=== PATIENT | female | born 1985 | race African-American/Black ===

== ENCOUNTER 2017-10-14 10:03 | Emergency (ER) ==
[2017-10-14 10:09] VITALS: BP 190/101; TEMP 97.7; BMI 55.5
--- NOTE | 2017-10-14 10:24 | ED.PDOC ---
General ED Provider: Dr. RONNIE PEDROZA Chief Complaint: Abscess Stated Complaint: lower leg wounds Time Seen by Physician: 10:00 (seen with Saul white a doctor in [place] for diabetes which he has not seen x 4 months) Mode of Arrival: Walk-In Information Source: Patient Exam Limitations: No limitations Nursing and Triage Documentation Reviewed and Agree: Yes (see photos) Does patient meet sepsis criteria?: No System Inflammatory Response Syndrome: Not Applicable (does not monitor her blood sugar) Sepsis Protocol: For patient's 13 years and over: Temp is 96.8 and below OR 101 and greater Pulse >90 BPM Resp >20/minute Acutely Altered Mental Status Are patient's symptoms suggestive of a new infection, such as: -Pneumonia -Skin, Soft Tissue -Endocarditis -UTI -Bone, Joint Infection -Implantable Device -Acute Abdominal Infection -Wound Infection -Meningitis -Blood Stream Catheter Infection -Unknown Skin Complaint Exam - Skin/Soft Tissue Complaint/Exam Onset/Duration: ulcers noted as noted in the photos lower ext x 5 days Symptoms Are: Still present Timing: Constant Initial Severity: Mild Current Severity: Mild Character: Reports: Redness. Denies: Swelling, Raised, Painful Aggravating: Reports: Touch Alleviating: Reports: None Associated Signs and Symptoms: Reports: Tenderness. Denies: Fever, Chills, Itching, Drainage, Bruising, Red streaks, Joint swelling Related History: Reports: Similar episode Related Surgical History: Reports: None Recent Exposure to Others w/Similar Symptoms: No Skin Findings: Present: Other (ulcers ) Differential Diagnoses: Abscess, Cellulitis Review of Systems - Review Of Systems Constitutional: Reports: No symptoms Eyes: Reports: No symptoms Ears, Nose, Mouth, Throat: Reports: No symptoms Respiratory: Reports: No symptoms Cardiac: Reports: No symptoms GI: Reports: No symptoms : Reports: No symptoms Musculoskeletal: Reports: No symptoms Skin: Reports: Other (see photos ) Neurological: Reports: No symptoms Endocrine: Reports: No symptoms Hematologic/Lymphatic: Reports: No symptoms All Other Systems: Reviewed and Negative Past Medical History - Past Medical History Previously Healthy: Yes Endocrine: Reports: DM 2 Cardiovascular: Reports: Hypertension Respiratory: Reports: None Hematological: Reports: None Gastrointestinal: Reports: None Genitourinary: Reports: None Neuro/Psych: Reports: None Musculoskeletal: Reports: None Cancer: Reports: None Last Menstrual Period: NOW - Surgical History General Surgical History: Reports: None - Family History Family History: Reports: None - Social History Smoking Status: Never smoker Hx Substance Use: No Alcohol Screening: None Physical Exam - Physical Exam Appearance: Well-appearing, No pain distress, Well-nourished Eyes: OG, EOMI, Conjunctiva clear ENT: Ears normal, Nose normal, Oropharynx normal Respiratory: Airway patent, Breath sounds clear, Breath sounds equal, Respirations nonlabored Cardiovascular: RRR, Pulses normal, No rub, No murmur GI/: Soft, Nontender, No masses, Bowel sounds normal, No Organomegaly Musculoskeletal: Normal strength, ROM intact, No edema, No calf tenderness Skin: Warm, Dry (LEG ULCERS PLEASEE PHOTOS) Neurological: Sensation intact, Motor intact, Reflexes intact, Cranial nerves intact, Alert, Oriented Psychiatric: Affect appropriate, Mood appropriate Critical Care Note - Critical Care Note Total Time (mins): 0 Course - Course Vital Signs: Temp Pulse Resp BP Pulse Ox 10/14/17 10:04 97.7 F 97 H 20 190/101 H 95 Departure - Departure Time of Disposition: 10:25 Disposition: HOME SELF-CARE Discharge Problem: Diabetic leg ulcer Instructions: Type 2 Diabetes in Adults (DC), Basic Carbohydrate Counting (DC) , Diabetic Foot Ulcers (ED), Chronic Wounds (ED) Condition: Good Pt referred to PMD for follow-up: Yes IPMP verified?: No Additional Instructions: Please call your Family Physician as soon as possible to schedule a follow-up appointment.PLEASE SEE YOUR DOCTOR SOON POSSIBLE. YOU MUST MONITOR YOUR BLOOD SUGAR, UNCONTROLLED DIABETES CAN LEAD TO WOUNDS OR EVEN FOOT, LEG WOUNDS AND LIMB LOSS. Allergies/Adverse Reactions: Allergies Penicillins Adverse Reaction (Verified 10/14/17 10:09) Home Medications: Ambulatory Orders Amitriptyline HCl [Elavil] 10 mg PO DAILY 10/14/17 Gabapentin [Neurontin] 300 mg PO BID 10/14/17 Insulin Lispro [Humalog] See Protocol SUBCUT BID 10/14/17 Losartan Potassium [Cozaar] 25 mg PO DAILY 10/14/17
== END 2017-10-14 10:37 | disposition home or self-care (01) ==
LOC: ED 10:03
DX: E11.622 Type 2 diabetes mellitus with other skin ulcer (principal); L97.909 Non-pressure chronic ulcer of unspecified part of unspecified lower leg with unspecified severity; I10 Essential (primary) hypertension
CPT/HCPCS: 99282

== ENCOUNTER 2017-10-28 13:15 | Outpatient (CLI) | payer OTHER | END 2017-10-28 13:16 | disposition home or self-care (01) | LOC: FCC-LAB 13:15 | PROVIDERS: ATTEND Family Medicine | DX: E11.9 Type 2 diabetes mellitus without complications (principal); I10 Essential (primary) hypertension; L68.0 Hirsutism; E25.9 Adrenogenital disorder, unspecified; E78.5 Hyperlipidemia, unspecified; Z68.43 Body mass index [BMI] 50.0-59.9, adult | CPT/HCPCS: 36415; 80053; 80061; 83037; 84443; 85025 ==

== ENCOUNTER 2017-11-04 11:25 | Outpatient (CLI) | END 2017-11-04 11:26 | disposition home or self-care (01) | LOC: LAB 11:25 → FCC-LAB 11:26 | PROVIDERS: ATTEND Family Medicine | DX: E11.9 Type 2 diabetes mellitus without complications (principal); E78.5 Hyperlipidemia, unspecified; I10 Essential (primary) hypertension; L68.0 Hirsutism; E25.9 Adrenogenital disorder, unspecified; Z68.43 Body mass index [BMI] 50.0-59.9, adult | CPT/HCPCS: 36415; 82626; 83037; 83519; 83525; 84305; 84403; 84681; 86341 ==

== ENCOUNTER 2017-11-09 00:49 | Emergency (ER) ==
[2017-11-09 00:58] VITALS: BP 157/93; TEMP 97; BMI 55.2
[2017-11-09] MEDS ORDERED: ZOFRAN 4 MG/2 ML IM STA (01:09)
[2017-11-09] MEDS ORDERED: BENTYL IM STA (01:09)
--- NOTE | 2017-11-09 01:13 | ED.PDOC ---
General ED Provider: Dr. BRIAN KEYES Chief Complaint: Abdominal Pain Stated Complaint: Patient is a 32 year old female who comes to the ER with nausea, vomiting 30 minutes after eating a moldy hot dog. Time Seen by Physician: 01:00 Mode of Arrival: Walk-In Information Source: Patient Exam Limitations: No limitations Primary Care Provider: DEVANTE CALDERA Nursing and Triage Documentation Reviewed and Agree: Yes Does patient meet sepsis criteria?: No System Inflammatory Response Syndrome: Not Applicable Sepsis Protocol: For patient's 13 years and over: Temp is 96.8 and below OR 101 and greater Pulse >90 BPM Resp >20/minute Acutely Altered Mental Status Are patient's symptoms suggestive of a new infection, such as: -Pneumonia -Skin, Soft Tissue -Endocarditis -UTI -Bone, Joint Infection -Implantable Device -Acute Abdominal Infection -Wound Infection -Meningitis -Blood Stream Catheter Infection -Unknown Review of Systems - Review Of Systems Constitutional: Reports: No symptoms Eyes: Reports: No symptoms Ears, Nose, Mouth, Throat: Reports: No symptoms Respiratory: Reports: No symptoms Cardiac: Reports: No symptoms GI: Reports: Abdomen distended, Nausea, Vomiting : Reports: No symptoms Musculoskeletal: Reports: No symptoms Skin: Reports: No symptoms Neurological: Reports: No symptoms Endocrine: Reports: No symptoms Hematologic/Lymphatic: Reports: No symptoms All Other Systems: Reviewed and Negative Past Medical History - Past Medical History Previously Healthy: Yes Endocrine: Reports: DM 2 Cardiovascular: Reports: Hypertension Respiratory: Reports: None Hematological: Reports: None Gastrointestinal: Reports: None Genitourinary: Reports: None Neuro/Psych: Reports: None Musculoskeletal: Reports: None Cancer: Reports: None Last Menstrual Period: current Other Pertinent Past Medical History: Obesity - Surgical History General Surgical History: Reports: None - Family History Family History: Reports: None - Social History Smoking Status: Never smoker Hx Substance Use: No Alcohol Screening: Occasionally - Immunizations Tetanus Shot up to Date: Yes Physical Exam - Physical Exam Appearance: Ill-appearing, Obese Ill-appearing: Mild Eyes: OG, EOMI, Conjunctiva clear ENT: Oropharynx normal Neck: Supple Respiratory: Airway patent, Breath sounds clear, Breath sounds equal, Respirations nonlabored Cardiovascular: RRR, Pulses normal, No rub, No murmur GI/: Soft, Nontender, No masses, Bowel sounds normal, No Organomegaly Musculoskeletal: Normal strength, ROM intact, No edema, No calf tenderness Skin: Warm, Dry, Normal color Neurological: Sensation intact, Motor intact, Reflexes intact, Cranial nerves intact, Alert, Oriented Psychiatric: Affect appropriate, Mood appropriate Critical Care Note - Critical Care Note Total Time (mins): 0 Course - Course Orders, Labs, Meds: Orders Category Date Time Status Dicyclomine Inj [Bentyl] MEDS 11/09/17 01:09 Discontinued 20 mg IM ONCE STA Ondansetron HCl/Pf [Zofran 4 mg/2 ml] MEDS 11/09/17 01:09 Discontinued 4 mg IM ONCE STA Medications Discontinued Medications Generic Name Dose Route Start Last Admin Trade Name Freq PRN Reason Stop Dose Admin Dicyclomine HCl 20 mg 11/09/17 01:09 11/09/17 01:32 Bentyl IM 11/09/17 01:10 20 mg ONCE STA Administration Ondansetron HCl 4 mg 11/09/17 01:09 11/09/17 01:32 Zofran 4 Mg/2 Ml IM 11/09/17 01:10 4 mg ONCE STA Administration Vital Signs: Temp Pulse Resp BP Pulse Ox 11/09/17 00:49 97 F L 99 H 20 157/93 H 98 Departure - Departure Time of Disposition: 01:17 Disposition: HOME SELF-CARE Discharge Problem: Food poisoning Qualifiers: Encounter type: sequela Injury intent: accidental or unintentional Qualified Code(s): T62.91XS - Toxic effect of unspecified noxious substance eaten as food , accidental (unintentional), sequela Instructions: Food Poisoning (ED) Condition: Stable Pt referred to PMD for follow-up: Yes IPMP verified?: No Additional Instructions: Take medications as prescribed Follow up wit PCP in 3 days Prescriptions: Dicyclomine HCl [Bentyl] 10 mg PO TID PRN #20 capsule PRN Reason: Abdominal Pain Ondansetron HCl [Zofran Tab] 4 mg PO Q8H PRN #14 tablet PRN Reason: Nausea / Vomiting Allergies/Adverse Reactions: Allergies Penicillins Adverse Reaction (Verified 11/09/17 00:55) Home Medications: Ambulatory Orders Amitriptyline HCl [Elavil] 10 mg PO DAILY 10/14/17 Insulin Lispro [Humalog] See Protocol SUBCUT BID 10/14/17 Losartan Potassium [Cozaar] 25 mg PO DAILY 10/14/17 Dicyclomine HCl [Bentyl] 10 mg PO TID PRN #20 capsule 11/09/17 Ondansetron HCl [Zofran Tab] 4 mg PO Q8H PRN #14 tablet 11/09/17 Disposition Discussed With: Patient
== END 2017-11-09 01:55 | disposition home or self-care (01) ==
LOC: ED 00:49
DX: T62.91XA Toxic effect of unspecified noxious substance eaten as food, accidental (unintentional), initial encounter (principal); R11.2 Nausea with vomiting, unspecified; I10 Essential (primary) hypertension; E11.9 Type 2 diabetes mellitus without complications; Z79.4 Long term (current) use of insulin; Z79.899 Other long term (current) drug therapy
CPT/HCPCS: 96372; 99282

== ENCOUNTER 2017-12-14 09:52 | Outpatient (CLI) | payer OTHER ==
--- NOTE | 2017-12-14 12:13 | US ---
Exam: Transvaginal ultrasonographic evaluation of the pelvis. Ramos-scale and color duplex Doppler im aging with spectral waveform analysis was performed. Comparison: Biophysical profile performed 09/16/2009. Reason for exam: Hirsutism FINDINGS: The uterus measures approximately 9.9 x 4.9 x 4.6 cm. Multiple heterogeneous appearing and hyperechoic appearing structures are seen within the uterine jeff metrium measuring up to 3.4 x 2.5 x 2.4 cm. Small amount of fluid is seen within the cervix. The endometrium measures 1.31 cm which is within normal limits. Reported last menstrual period 12/05/2017. The right ovary was not seen on the examination. The left ovary measures approximately 2.9 x 2.2 x 2.0 cm with normal appearing vascularity. There is a 1.3 x 1.0 x 1.2 cm cyst in the left ovary. Impression: 1. Nodular appearing structures within the uterine myometrium likely represent fibroids. If clinica l concern exists, further evaluation may be performed. 2. The right ovary was not seen on the exam. 3. The left ovary appears grossly unremarkable with a 1.3 cm ovarian cyst
== END 2017-12-14 09:53 | disposition home or self-care (01) ==
LOC: RAD 09:52
PROVIDERS: ATTEND Family Medicine
DX: L68.0 Hirsutism (principal); E28.2 Polycystic ovarian syndrome

== ENCOUNTER 2018-01-09 08:48 | Outpatient (CLI) | payer OTHER | END 2018-01-09 08:49 | disposition home or self-care (01) | LOC: FCC-LAB 08:48 | PROVIDERS: ATTEND Family Medicine | DX: E24.9 Cushing's syndrome, unspecified (principal) | CPT/HCPCS: 36415; 82533 ==

== ENCOUNTER 2018-08-08 10:53 | Emergency (ER) ==
[2018-08-08 11:00] VITALS: TEMP 97.6; BMI 56.2
--- NOTE | 2018-08-08 11:22 | ED.PDOC ---
General ED Provider: Dr. RODGER HERNÁNDEZ Chief Complaint: Foot Pain/Injury Stated Complaint: Pain in Rt Heel. No know trauma Time Seen by Physician: 11:10 Mode of Arrival: Walk-In Information Source: Patient Exam Limitations: No limitations Primary Care Provider: DEVANTE CALDERA Nursing and Triage Documentation Reviewed and Agree: Yes Does patient meet sepsis criteria?: No System Inflammatory Response Syndrome: Not Applicable Sepsis Protocol: For patient's 13 years and over: Temp is 96.8 and below OR 101 and greater Pulse >90 BPM Resp >20/minute Acutely Altered Mental Status Are patient's symptoms suggestive of a new infection, such as: -Pneumonia -Skin, Soft Tissue -Endocarditis -UTI -Bone, Joint Infection -Implantable Device -Acute Abdominal Infection -Wound Infection -Meningitis -Blood Stream Catheter Infection -Unknown Musculoskeletal Complaint Exam - Ankle/Foot Complaint/Exam Location of Injury: Reports: Right, Foot (calcaneus) Mechanism of Injury: Reports: No known trauma Onset/Duration: 3 days Symptoms Are: Reports: Still present Onset of Pain: Reports: Prior to arrival Initial Severity: Mild Current Severity: Moderate Location: Reports: Discrete Character: Reports: Sharp, Aching Alleviating: Reports: Rest Aggravating: Reports: Movement, Weight bearing, Prolonged standing Able to Bear Weight: Yes (but painful) Related History: Reports: Similar episode (Occurred in past but then resolved with rest-now has occurred with increased pain ) Gout Risk Factors: Reports: None Related Surgical History: Reports: None Lower Extremity Findings: Present: Tenderness Achilles Tendon Abnormality: No Limited Range of Motion: Present: Plantarflexion Differential Diagnosis: Contusion, Strain, Bursitis, Other (heel spur) Review of Systems - Review Of Systems Constitutional: Reports: No symptoms Eyes: Reports: No symptoms Ears, Nose, Mouth, Throat: Reports: No symptoms Respiratory: Reports: No symptoms Cardiac: Reports: No symptoms GI: Reports: No symptoms : Reports: No symptoms Musculoskeletal: Reports: Other (RT HEEL PAIN ) Skin: Reports: No symptoms Neurological: Reports: No symptoms Endocrine: Reports: No symptoms Hematologic/Lymphatic: Reports: No symptoms All Other Systems: Reviewed and Negative Past Medical History - Past Medical History Previously Healthy: Yes Endocrine: Reports: DM 2 Cardiovascular: Reports: Hypertension Respiratory: Reports: None Hematological: Reports: None Gastrointestinal: Reports: None Genitourinary: Reports: None Neuro/Psych: Reports: None Musculoskeletal: Reports: None Cancer: Reports: None Last Menstrual Period: last month Other Pertinent Past Medical History: Obesity - Surgical History General Surgical History: Reports: None - Family History Family History: Reports: None - Social History Smoking Status: Never smoker Hx Substance Use: No Alcohol Screening: None - Immunizations Tetanus Shot up to Date: No Physical Exam - Physical Exam Appearance: Obese Ill-appearing: Mild Pain Distress: Mild Eyes: OG, EOMI, Conjunctiva clear ENT: Ears normal, Nose normal, Oropharynx normal Neck: Supple Respiratory: Airway patent, Breath sounds clear, Breath sounds equal, Respirations nonlabored Cardiovascular: RRR, Pulses normal, No rub, No murmur GI/: Soft, Nontender, No masses, Bowel sounds normal, No Organomegaly Musculoskeletal: Normal strength (PAIN TO PALPATION OF RT HEEL), ROM intact, No edema, No calf tenderness Skin: Warm, Dry, Normal color Neurological: Sensation intact, Motor intact, Reflexes intact, Cranial nerves intact Psychiatric: Affect appropriate, Mood appropriate Interpretation - Radiology Interpretation Radiology Results: Positive (rt plantar calcaneal spur/ OA changes) Physician Notification - Case Discussed Physician Notified: DR CALDERA Time of Notification: 12:30 (MADE AWARE OF PTS DIABETES AND LACK OF INSULIN- WILL WORK IN ) Critical Care Note - Critical Care Note Total Time (mins): 0 Course - Course Hematology/Chemistry: 08/08/18 11:35 08/08/18 11:35 Orders, Labs, Meds: Lab Review 08/08/18 08/08/18 11:35 11:35 WBC 6.27 RBC 4.51 Hgb 11.1 L Hct 35.7 L MCV 79.2 L MCH 24.6 L MCHC 31.1 L RDW Coeff of Rod 14.6 Plt Count 376 Immature Gran % (Auto) 0.2 Neut % (Auto) 60.1 Lymph % (Auto) 32.9 [place] % (Auto) 5.4 Eos % (Auto) 0.8 Baso % (Auto) 0.6 Immature Gran # (Auto) 0.0 Neut # (Auto) 3.8 Lymph # (Auto) 2.1 [place] # (Auto) 0.3 L Eos # (Auto) 0.1 Baso # (Auto) 0.0 ESR 34 H Sodium 135.5 Potassium 3.73 Chloride 99.5 Carbon Dioxide 27.4 Anion Gap 12.33 BUN 9.0 Creatinine 0.51 L Estimated GFR (MDRD) 166.00 BUN/Creatinine Ratio 17.64 Glucose 302.7 H Calcium 8.91 Total Bilirubin 0.68 AST 19.8 ALT 14.3 Alkaline Phosphatase 77.9 Total Protein 7.84 Albumin 4.12 Globulin 3.72 Albumin/Globulin Ratio 1.10 Orders Category Date Time Status CBC W/ AUTO DIFF Stat LAB 08/08/18 11:35 Completed CMP [COMPREHENSIVE METABOLIC PANEL] Stat LAB 08/08/18 11:35 Completed ESR Stat LAB 08/08/18 11:35 Completed HEEL, RIGHT (CALCANEUS) Stat RADS 08/08/18 11:27 Completed Vital Signs: Temp Pulse Resp BP Pulse Ox 08/08/18 12:41 143/91 H 08/08/18 10:54 97.6 F 92 H 18 158/105 H 94 L Departure - Departure Time of Disposition: 12:15 Disposition: HOME SELF-CARE Discharge Problem: Calcaneal spur of foot, Diabetes type 2, uncontrolled Instructions: Heel Spur (ED), Type 2 Diabetes Management for Adults (ED) Condition: Fair Pt referred to PMD for follow-up: Yes IPMP verified?: No Additional Instructions: Minimize weight bearing ambulation rX IBUPROFEN FOR PAIN CONTROL Ice pack to site of pain for 20 minutes twice daily Follow up with PCP and Records Supervisor Keep Close track of blood glucose levels See Dr Caldera as soon as possible/WILL ATTEMPT TO WORK YOU IN FOR APT Prescriptions: Ibuprofen [Ibu] 600 mg PO QID PRN #30 tablet PRN Reason: Heel pain Allergies/Adverse Reactions: Allergies Penicillins Adverse Reaction (Verified 08/08/18 11:06) Home Medications: Ambulatory Orders Ibuprofen [Ibu] 600 mg PO QID PRN #30 tablet 08/08/18 Insulin Glargine,Hum.rec.anlog [Lantus Solostar] 0 SQ 08/09/18 Disposition Discussed With: Patient
[2018-08-08 12:41] VITALS: BP 143/91
--- NOTE | 2018-08-08 13:03 | DI ---
EXAM: Right calcaneus, two-view HISTORY: Pain COMPARISON: None FINDINGS: No fracture or dislocation. Small to moderate plantar calcaneal spur. Mild posterior mao caneal enthesopathy. Mild to moderate osteoarthritis midfoot with dorsal spurring. Atherosclerotic vascular calcification. No focal soft tissue abnormality. IMPERSSION: 1. No fracture or dislocation. 2. Small to moderate plantar calcaneal spur. Mild posterior calcaneal enthesopathy. 3. Osteoarthritis midfoot.
== END 2018-08-08 13:05 | disposition home or self-care (01) ==
LOC: ED 10:53
DX: E11.65 Type 2 diabetes mellitus with hyperglycemia (principal); M77.31 Calcaneal spur, right foot; I10 Essential (primary) hypertension; Z79.4 Long term (current) use of insulin
CPT/HCPCS: 36415; 80053; 85025; 85651; 99283

== ENCOUNTER 2018-08-18 11:25 | Outpatient (CLI) | payer OTHER | END 2018-08-18 11:26 | disposition home or self-care (01) | LOC: RHC-LAB 11:25 → FCC-LAB 11:26 | PROVIDERS: ATTEND Family Medicine | DX: E11.9 Type 2 diabetes mellitus without complications (principal); E22.0 Acromegaly and pituitary gigantism; E25.9 Adrenogenital disorder, unspecified; M72.2 Plantar fascial fibromatosis; E78.5 Hyperlipidemia, unspecified | CPT/HCPCS: 36415; 80061; 83037 ==

== ENCOUNTER 2022-09-05 20:35 | Inpatient (IN) ==
[2022-09-05] MEDS ORDERED: ZOFRAN 4 MG/2 ML IVP STA (20:38)
[2022-09-05 21:06] LABS: BASOPHILS % (AUTO) 0.1 % (0.0-3.0); HEMATOCRIT 35.5 % (37.0-47.0); HEMOGLOBIN 11.6 g/dl (12.0-16.0); IMMATURE GRANULOCYTE # (AUTO) 0.1 (0.0-1.0); IMMATURE GRANULOCYTE % (AUTO) 0.5 % (0.0-5.0); LYMPHOCYTES # (AUTO) 1.6 K/uL (0.60-3.4); LYMPHOCYTES % (AUTO) 11.9 (10.0-50.0); MEAN CORPUSCULAR HGB CONC 32.7 (31.8-35.4); MEAN CORPUSCULAR VOLUME 85.5 fl (81.0-99.0); MONOCYTES # (AUTO) 0.7 K/uL (0.4-2.0); MONOCYTES % (AUTO) 5.2 (0-10); NEUTROPHILS # (AUTO) 11.2 K/ul (2.0-6.9); NEUTROPHILS % (AUTO) 82.3 % (42.2-75.2); PLATELET COUNT 513 10^3/uL (140-440); RDW COEFFICIENT OF VARIATION 13.7 % (11.6-14.8); RED BLOOD COUNT 4.15 10^6/ul (4.20-5.40); WHITE BLOOD COUNT 13.58 K/ul (4.6-10.2)
[2022-09-05 21:17] LABS: ALANINE AMINOTRANSFERASE 55.4 U/L (0-35); ALBUMIN 3.94 g/dL (3.5-5.0); ALKALINE PHOSPHATASE 309.8 U/L (38-126); ASPARTATE AMINO TRANSFERASE 46.8 U/L (14-36); BILIRUBIN,TOTAL 0.88 mg/dL (0.2-1.3); BLOOD UREA NITROGEN 22.4 mg/dL (7-17); CALCIUM 9.47 mg/dL (8.4-10.2); CARBON DIOXIDE 25.3 mmol/L (22-30.0); CHLORIDE 92.8 mmol/L (98-107); CREATININE 1.24 mg/dL (0.60-1.30); GLUCOSE 368.6 mg/dL (74-106); LIPASE 31.6 U/L (23-300); POTASSIUM 3.87 mmol/L (3.5-5.1); SODIUM 134.2 mmol/L (134.5-145); TOTAL PROTEIN 9.19 g/dL (6.3-8.2)
--- NOTE | 2022-09-05 21:24 | ED.PDOC ---
General ED Provider: Dr. GOKUL RODRIGUEZ DO Chief Complaint: Nausea/Vomiting Stated Complaint: Patient is a 37 yo F here for generalized abdominal pain with nausea Patient arrives tachcyardic rate 105, afebrile with stable blood pressure She reports 3-4 days of nausea and abdominal pain PMH: insulin dependnet DM2, obesity, HTN, GERD SHe denies tobacco drug or alcohol use Initially she thought this may be her GERD but it feels worse She is compliant with medicaiotn regiment but not a diabetic diet SHe states this does not feel like when her usgars are uncotnrolled Patietn stable Daughter at bedside No falls no injuires, no trauma No cough, no chest pain No ahses, no dysuria. Time Seen by Provider: 09/05/22 20:40 Information Source: Patient Primary Care Provider: FRANCISCO STEPHENS APRN Nursing and Triage Documentation Reviewed and Agree: Yes Does patient meet sepsis criteria?: Yes If yes, has appropriate treatment been initiated?: Yes System Inflammatory Response Syndrome: Pulse >90 BPM Sepsis Protocol: For patient's 13 years and over: Temp is 96.8 and below OR 101 and greater Pulse >90 BPM Resp >20/minute Acutely Altered Mental Status Are patient's symptoms suggestive of a new infection, such as: -Pneumonia -Skin, Soft Tissue -Endocarditis -UTI -Bone, Joint Infection -Implantable Device -Acute Abdominal Infection -Wound Infection -Meningitis -Blood Stream Catheter Infection -Unknown Review of Systems Review Of Systems Constitutional: Denies Chills, Fever, Weakness or Sweats Eyes: Denies Blindness or Vision change Ears, Nose, Mouth, Throat: Denies Ear pain, Ear discharge, Nose pain, Nose discharge, Epistaxis or Mouth pain Respiratory: Denies Cough, Shortness of Breath or Stridor Cardiac: Denies Chest pain, Irregular heart rate or Lightheadedness GI: Reports Abdominal pain, Diarrhea and Poor appetite; Denies Abdomen distended or Constipated : Denies Burning, Dysuria, Discharge, Frequency or Flank pain Musculoskeletal: Denies Back pain, Joint pain or Joint swelling Skin: Denies Bruising, Change in hair/nails or Rash Neurological: Denies Anxiety or Depressed Endocrine: Denies Excessive sweating or Flushing Hematologic/Lymphatic: Reports No symptoms All Other Systems: Reviewed and Negative [facility] Medical History Asthma J45.909 - Unspecified asthma, uncomplicated (ICD-10) 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 - Type 2 diabetes mellitus with diabetic autonomic (poly)neuropathy (ICD-10) K31.84 - Gastroparesis (ICD-10) Elevated cholesterol E78.00 - Pure hypercholesterolemia, unspecified (ICD-10) Iron deficiency anemia D50.9 - Iron deficiency anemia, unspecified (ICD-10) Mixed hyperlipidemia E78.2 - Mixed hyperlipidemia (ICD-10) Vitamin D deficiency E55.9 - Vitamin D deficiency, unspecified (ICD-10) Family History Mother Diabetes Alcoholism Psychiatric disorder Cancer Hypertension FATHER Alcoholism Cardiac disease Psychiatric disorder Hypertension BROTHER Psychiatric disorder pgm Cerebrovascular accident mgm Psychiatric disorder Social History Smoking and tobacco status: Never smoker Alcohol intake: current Alcohol intake frequency: a few times a month Substance use type: does not use Ludmila/christian: CONFUCIANISM Special ludmila needs: No Agree to transfusion: Yes Adopted: Yes Caregiver/support person: Yes (has a child) Household members: children Housing: apartment Marital status: W / Number of children: 1 Highest education level completed: high school graduate Financial difficulty paying for basics: not very hard service: No Current occupational status: disabled Current occupation: on disability since 17 y/o due to ID Pets and animals: No History of recent travel: No Sexually active: No Do you think of yourself as: straight/heterosexual Current gender identity: female Seatbelt use: always Drives intoxicated or rides with intoxicated frontload driver: No Water heater temperature set < 120 degrees: Yes Working smoke detector in home: Yes Fire extinguisher in home: No Carbon monoxide detector in home: No Firearms in home: No Surgical History Gall Bladder Removal Female Reproductive History Menstrual Hx Hysterectomy: No Hx Tubal Ligation: No Physical Exam Physical Exam Appearance: Reports Well-appearing, Well-nourished and Obese Ill-appearing: Not Applicable Pain Distress: Not Applicable Eyes: Reports OG and EOMI ENT: Reports Ears normal, Nose normal and Other (Uvula midline, poor dentition, no oropharyngeal lesions); Denies TMs Occluded, Epistaxis or Dry mucosa Neck: Supple Respiratory: Reports Airway patent and Breath sounds clear; Denies Wheezes Cardiovascular: Reports Tachycardia GI/: Reports Soft and Other (epigastric ttp, negative kim sign, no [place] ttp, no fluid wave. Central abdominal obeisty present.) Musculoskeletal: Reports Normal strength and ROM intact Skin: Reports Warm and Dry Neurological: Reports Sensation intact and Motor intact Psychiatric: Reports Affect appropriate and Mood appropriate Critical Care Note Critical Care Note Total Critical Care Time (mins): 35 Course Course 09/05/22 21:00 09/05/22 21:00 Orders, Labs, Meds: Lab Review 09/05/22 09/05/22 09/05/22 19:10 20:35 21:00 WBC 13.58 H RBC 4.15 L Hgb 11.6 L Hct 35.5 L MCV 85.5 MCH 28.0 MCHC 32.7 RDW Coeff of Rod 13.7 Plt Count 513 H Immature Gran % (Auto) 0.5 Neut % (Auto) 82.3 H Lymph % (Auto) 11.9 [place] % (Auto) 5.2 Eos % (Auto) 0.0 Baso % (Auto) 0.1 Neut # (Auto) 11.2 H Lymph # (Auto) 1.6 [place] # (Auto) 0.7 Eos # (Auto) 0.0 Baso # (Auto) 0.0 Immature Gran # (Auto) 0.1 Sodium 134.2 L Potassium 3.87 Chloride 92.8 L Carbon Dioxide 25.3 Anion Gap 19.97 BUN 22.4 H Creatinine 1.24 Estimated GFR (MDRD) 58.00 BUN/Creatinine Ratio 18.06 Glucose 368.6 H Lactic Acid 1.26 Calcium 9.47 Magnesium 1.62 Total Bilirubin 0.88 AST 46.8 H ALT 55.4 H Alkaline Phosphatase 309.8 H Total Protein 9.19 H Albumin 3.94 Globulin 5.25 Albumin/Globulin Ratio 0.75 Lipase 31.6 Urine Color Yellow Urine Clarity Clear Urine pH 5.0 Ur Specific [place] 1.020 Urine Protein 3+ H Urine Glucose (UA) 3+ H Urine Ketones 1+ H Urine Blood 3+ H Urine Nitrite Positive H Urine Bilirubin 2+ H Urine Urobilinogen 2.0 H Ur Leukocyte Esterase 1+ H Urine Microscopic RBC 20-30 Urine Microscopic WBC 5-10 Ur Squamous Epith Cells 2-5 Urine Bacteria 3+ Urine Test Negative Acetone, Qual Small Orders Category Date Time Status [facility] ADMISSION 09/05/22 22:40 Active ACTIVITY .Early Mobilization for VTE Prevention CARE 09/05/22 22:51 Active BLOOD GLUCOSE MONITORING (MED/SURG) Q1HR CARE 09/05/22 22:51 Active GIVE HS SNACK 2100 CARE 09/05/22 22:53 Active INTAKE & OUTPUT Q8HR CARE 09/05/22 22:47 Active NPO REMINDER: IMAGING ONCE CARE 09/05/22 20:57 Completed REMINDER: Give Insulin if Needed Q1HR CARE 09/05/22 22:51 Active TELEMETRY MONITORING TELE CARE 09/05/22 22:40 Active TELEMETRY MONITORING TELE CARE 09/05/22 22:52 Active VITAL SIGNS Q4HR CARE 09/05/22 22:47 Active NPO - EXCEPT MAY GIVE PO MEDS DIETARY 09/06/22 Breakfast Ordered ED IV/MEDIPORT/POWERPORT .ONCE EMERGENCY 09/05/22 20:38 Active ACETONE, QUALITATIVE Stat LAB 09/05/22 21:00 Completed BLOOD CULTURE Stat LAB 09/05/22 22:20 Received CBC W/ AUTO DIFF DAILY@0600 LAB 09/06/22 06:00 Ordered CBC W/ AUTO DIFF DAILY@0600 LAB 09/07/22 06:00 Ordered CBC W/ AUTO DIFF Stat LAB 09/05/22 21:00 Completed CMP [COMPREHENSIVE METABOLIC PANEL] Stat LAB 09/05/22 22:37 Ordered COMPREHENSIVE METABOLIC PANEL DAILY@0600 LAB 09/06/22 06:00 Ordered COMPREHENSIVE METABOLIC PANEL DAILY@0600 LAB 09/07/22 06:00 Ordered COMPREHENSIVE METABOLIC PANEL Stat LAB 09/05/22 21:00 Completed LACTIC ACID Stat LAB 09/05/22 21:00 Completed LIPASE Stat LAB 09/05/22 21:00 Completed MAGNESIUM Stat LAB 09/05/22 20:35 Completed TEST URINE [URINE ] Stat LAB 09/05/22 19:10 Completed URINALYSIS C & S IF INDICATED Stat LAB 09/05/22 19:10 Completed VENOUS BLOOD GAS Stat LAB 09/05/22 23:05 Ordered 0.9 % Sodium Chloride [Saline Flush] Meds 09/05/22 20:38 Active 1 syr IVF PRN PRN Acetaminophen [Tylenol] Meds 09/05/22 22:51 Ordered 650 mg PO Q4H PRN Ceftriaxone/D5w 1 gm Premix [Rocephin 1 gm/50 ml D5w] Meds 09/06/22 09:00 Ordered 1 gm in 50 ml IV DAILY Ceftriaxone/D5w 2 gm Premix [Rocephin 2 gm/50 ml D5w] Meds 09/05/22 22:00 Discontinued 2 gm IV ONCE ONE Insulin Regular, Human [Humulin R] Meds 09/05/22 21:33 Discontinued 10 unit IVP ONCE STA Insulin Regular, Human [Humulin R] Meds 09/05/22 22:51 Ordered See Protocol SUBCUT PRN PRN Ondansetron HCl/Pf [Zofran 4 mg/2 ml] Meds 09/05/22 20:38 Discontinued 4 mg IVP ONCE STA Ondansetron HCl/Pf [Zofran 4 mg/2 ml] Meds 09/05/22 23:00 Ordered 4 mg IVP Q6H PRN Potassium Chloride/D5-0.45NACL [D5%-1/2Ns-KCl 40 Meq/l Meds 09/05/22 22:00 Active IV Caitlyn] 1,000 ml IV 250 mls/hr Sodium Chloride 0.9% [Sodium Chloride] 1,000 ml Meds 09/05/22 21:28 Discontinued IV BOLUS Sodium Chloride 0.9% [Sodium Chloride] 1,000 ml Meds 09/05/22 21:35 Discontinued IV BOLUS Sodium Chloride 0.9% [Sodium Chloride] 1,000 ml Meds 09/05/22 22:[address] ABDOMEN/PELVIS W CONTRAST Stat RADS 09/05/22 20:57 Completed Medications Generic Name Dose Route Start Last Admin Trade Name Freq PRN Reason Stop Dose Admin Acetaminophen 650 mg 09/05/22 22:51 Acetaminophen 325 Mg Tablet PO Q4H PRN Mild Pain Potassium Chloride/Dextrose/Sod Cl 1,000 mls @ 250 mls/hr 09/05/22 22:00 09/05/22 22:02 D5%-1/2ns-Kcl 40 Meq/L Iv Caitlyn IV 250 mls/hr .Q4H EB Administration CEFTRIAXONE/D5W 1 GM PREMIX 1 gm in 50 mls @ 75 mls/hr 09/06/22 09:00 Rocephin 1 Gm/50 Ml D5w IV 09/09/22 08:59 DAILY EB Insulin Human Regular 0 unit 09/05/22 22:51 Insulin Regular, Human 100 Unit/Ml (3ml) Vial SUBCUT PRN PRN Hyperglycemia Protocol Ondansetron HCl 4 mg 09/05/22 23:00 Ondansetron Hcl/Pf 4 Mg/2 Ml Sdv IVP Q6H PRN Nausea / Vomiting Sodium Chloride 1 syr 09/05/22 20:38 09/05/22 21:11 0.9% Sodium Chloride 10 Ml Disp.Syrin IVF 1 syr PRN PRN Administration To flush IV Discontinued Medications Generic Name Dose Route Start Last Admin Trade Name Freq PRN Reason Stop Dose Admin Sodium Chloride 1,000 mls @ 1,000 mls/hr 09/05/22 21:28 09/05/22 21:37 Sodium Chloride IV 09/05/22 22:27 1,000 mls/hr BOLUS STA Administration Sodium Chloride 1,000 mls @ 1,000 mls/hr 09/05/22 21:35 09/05/22 22:01 Sodium Chloride IV 09/05/22 22:34 Not Given BOLUS STA Sodium Chloride 1,000 mls @ 1,000 mls/hr 09/05/22 22:01 09/05/22 22:38 Sodium Chloride IV 09/05/22 23:00 1,000 mls/hr BOLUS STA Administration Insulin Human Regular 10 unit 09/05/22 21:33 09/05/22 21:47 Insulin Regular, Human 100 Unit/Ml (3ml) Vial IVP 09/05/22 21:34 10 unit ONCE STA Administration Ondansetron HCl 4 mg 09/05/22 20:38 09/05/22 21:11 Ondansetron Hcl/Pf 4 Mg/2 Ml Sdv IVP 09/05/22 20:39 4 mg ONCE STA Administration Vital Signs: Temp Pulse Resp BP Pulse Ox 09/05/22 20:41 98.4 F 105 H 17 130/77 95 MDM: Patient is a 37 yo F here for nausea, vomiting and abdominal pain Patient afebrile, tachycardic with stable blood pressure Exam concerning for tachycardia 3+ labs and 1 image reviewed by me Consults to [facility]ist Team We discussed UTI, sirs + source and AGMA with hyperglycemia Patient reviewed fluids for HHS/sepsis, blood cultures and Rocephin 2 g for UTI/sepsis I spoke with [facility] pharmacist she agrees with Rocephin for her illness in setting of PCN allergy Hx from patient chart review by me WDX: UTI, sepsis, HHS, AGMA, nausea, vomiting abdominal pain, transaminitis, acute on chronic moderate complexity DDX: I considered shock, SBO, appendicitis but these were not found Insulin 10 units and electrolytes repleted Patient full code and amenable to plan and admission SDOH:Patient has multiple comorbidities and will improve with inpatient care All questions answered Discharge Plan Discharge Patient Disposition: ADMITTED INPATIENT Discharge Problem: Anemia, Leukocytosis, Thrombocytosis, Nausea & vomiting, Abdominal pain, Acute hyperglycemia, UTI (urinary tract infection), Increased anion gap metabolic acidosis, Sepsis Did you review [place] for ALL controlled substances?: Not Applicable ED Provider: GOKUL RODRIGUEZ Condition: Fair Physician Progress Note: []
[2022-09-05 21:26] LABS: BILIRUBIN,URINE 2+ (NEGATIVE); CLARITY,URINE Clear (CLEAR); COLOR,URINE Yellow (YELLOW); KETONES,URINE 1+ (NEGATIVE); LEUKOCYTE ESTERASE ,URINE 1+ (NEGATIVE); NITRITE,URINE Positive (NEGATIVE); PROTEIN,URINE 3+ (NEGATIVE); URINE, BLOOD 3+ (NEGATIVE)
[2022-09-05 21:27] LABS: URINE PREGNANCY TEST NEGATIVE (NEGATIVE)
[2022-09-05 21:28] LABS: GLUCOSE, URINE (UA) 3+ (NEGATIVE)
[2022-09-05] MEDS ORDERED: SODIUM CHLORIDE 1,000 ML IV STA ×3 (21:28→22:01)
[2022-09-05 21:29] LABS: BACTERIA,URINE 3+ (NOT PRESENT); URINE RBC, MICROSCOPIC 20-30 (0-2)
[2022-09-05] MEDS ORDERED: HUMULIN R IVP STA (21:33)
[2022-09-05] MEDS ORDERED: D5W IV ONE (22:00)
[2022-09-05] MEDS ORDERED: D5%-1/2NS-KCL 40 MEQ/L IV SOL 1,000 ML IV SCH (22:00)
[2022-09-05] MEDS ORDERED: ROCEPHIN IV ONE (22:00)
--- NOTE | 2022-09-05 22:23 | CT ---
EXAM: CT SCAN ABDOMEN PELVIS WITH CONTRAST HISTORY: Left upper quadrant pain COMPARISON: CT scan abdomen pelvis 07/27 21 FINDINGS: Postcontrast helical imaging was obtained through the abdomen pelvis utilizing 2.5-mm edvin imation. Sagittal and coronal reconstructions were imaged and reviewed. Visualized lung bases are c lear. There has been prior cholecystectomy. The liver is enlarged with diffuse fatty infiltration. The pancreas spleen and adrenal glands have normal enhanced CT appearance. The kidneys excrete cont rast in a normal fashion bilaterally.. The abdominal aorta is normal and course and caliber. The in testines demonstrate normal caliber without surrounding inflammatory changes. There is a fat-contain ing umbilical hernia. The bladder is decompressed limiting evaluation. Normal-appearing uterus. Walter ne windows reveals no lytic or blastic lesions. IMPRESSION: No acute intra-abdominal findings Hepatomegaly with fatty infiltration All CT scans are performed using dose optimization techniques as appropriate to the performed exam an d include at least one of the following: Automated exposure control, adjustment of the mA and/or kV according t o size, and the use of iterative reconstruction technique.
[2022-09-05] MEDS ORDERED: TYLENOL PO PRN (22:51)
[2022-09-06 00:03] VITALS: BMI 53.0
[2022-09-06 00:30] LABS: ALANINE AMINOTRANSFERASE 52.3 U/L (0-35); ALBUMIN 3.72 g/dL (3.5-5.0); ALKALINE PHOSPHATASE 292.9 U/L (38-126); ASPARTATE AMINO TRANSFERASE 45.5 U/L (14-36); BILIRUBIN,TOTAL 0.8 mg/dL (0.2-1.3); BLOOD UREA NITROGEN 24.6 mg/dL (7-17); CARBON DIOXIDE 28.6 mmol/L (22-30.0); CHLORIDE 93.7 mmol/L (98-107); CREATININE 1.15 mg/dL (0.60-1.30); GLUCOSE 360.7 mg/dL (74-106); POTASSIUM 3.97 mmol/L (3.5-5.1); SODIUM 134.4 mmol/L (134.5-145); TOTAL PROTEIN 8.84 g/dL (6.3-8.2)
[2022-09-06] MEDS ORDERED: MYXREDLIN 100 UNIT/100 ML BAG 100 UNIT/100 ML PLAST..BAG IV SCH (01:30)
[2022-09-06] MEDS: SODIUM CHLORIDE 0.9%-KCL 20 MEQ 1,000 ML IV SCH ×2 (01:49→07:38)
[2022-09-06 02:46] LABS: BLOOD UREA NITROGEN 23.7 mg/dL (7-17); CALCIUM 9.09 mg/dL (8.4-10.2); CARBON DIOXIDE 25.5 mmol/L (22-30.0); CHLORIDE 95.5 mmol/L (98-107); CREATININE 1.02 mg/dL (0.60-1.30); GLUCOSE 330.3 mg/dL (74-106); POTASSIUM 3.79 mmol/L (3.5-5.1); SODIUM 136.5 mmol/L (134.5-145)
[2022-09-06] MEDS: ZOFRAN 4 MG/2 ML IVP PRN ×2 (04:09→17:16)
[2022-09-06] MEDS ORDERED: D5%-1/2NS-KCL 40 MEQ/L IV SOL 1,000 ML IV SCH ×2 (04:30→07:15)
[2022-09-06 06:09] LABS: BASOPHILS % (AUTO) 0.2 % (0.0-3.0); HEMATOCRIT 33.9 % (37.0-47.0); HEMOGLOBIN 11.1 g/dl (12.0-16.0); IMMATURE GRANULOCYTE # (AUTO) 0.1 (0.0-1.0); IMMATURE GRANULOCYTE % (AUTO) 0.5 % (0.0-5.0); LYMPHOCYTES # (AUTO) 1.9 K/uL (0.60-3.4); LYMPHOCYTES % (AUTO) 15.9 (10.0-50.0); MEAN CORPUSCULAR HGB CONC 32.7 (31.8-35.4); MEAN CORPUSCULAR VOLUME 85.6 fl (81.0-99.0); MONOCYTES # (AUTO) 1.2 K/uL (0.4-2.0); MONOCYTES % (AUTO) 9.7 (0-10); NEUTROPHILS # (AUTO) 8.7 K/ul (2.0-6.9); NEUTROPHILS % (AUTO) 73.7 % (42.2-75.2); PLATELET COUNT 505 10^3/uL (140-440); RDW COEFFICIENT OF VARIATION 13.8 % (11.6-14.8); RED BLOOD COUNT 3.96 10^6/ul (4.20-5.40); WHITE BLOOD COUNT 11.85 K/ul (4.6-10.2)
[2022-09-06 06:21] LABS: ALANINE AMINOTRANSFERASE 52.9 U/L (0-35); ALBUMIN 3.69 g/dL (3.5-5.0); ALKALINE PHOSPHATASE 289.7 U/L (38-126); BILIRUBIN,TOTAL 0.78 mg/dL (0.2-1.3); BLOOD UREA NITROGEN 22.8 mg/dL (7-17); CALCIUM 9.06 mg/dL (8.4-10.2); CARBON DIOXIDE 26.1 mmol/L (22-30.0); CHLORIDE 98.1 mmol/L (98-107); CREATININE 0.92 mg/dL (0.60-1.30); GLUCOSE 328.2 mg/dL (74-106); POTASSIUM 3.85 mmol/L (3.5-5.1); SODIUM 136.1 mmol/L (134.5-145); TOTAL PROTEIN 8.66 g/dL (6.3-8.2)
[2022-09-06] MEDS ORDERED: SODIUM CHLORIDE 0.9%-KCL 20 MEQ 1,000 ML IV SCH (07:15)
[2022-09-06 08:40] LABS: VBG HCO3 16.4 (22-26); VBG OXYGEN SATURATION 99.2 (60-80); VBG PH 6.96 (7.30-7.40)
[2022-09-06 09:19] LABS: VBG HCO3 23.3 (22-26); VBG OXYGEN SATURATION 97.1 (60-80); VBG PH 7.47 (7.30-7.40)
[2022-09-06 09:23] LABS: CALCIUM 8.98 mg/dL (8.4-10.2); CARBON DIOXIDE 24.7 mmol/L (22-30.0); CHLORIDE 100.8 mmol/L (98-107); CREATININE 0.76 mg/dL (0.60-1.30); GLUCOSE 302.1 mg/dL (74-106); POTASSIUM 3.73 mmol/L (3.5-5.1); SODIUM 137.9 mmol/L (134.5-145)
[2022-09-06] MEDS: LACTATED RINGERS 1,000 ML IV SCH ×2 (10:01→17:24)
--- NOTE | 2022-09-06 10:46 | PCM ---
Date of Service Date Seen by Provider: 09/06/22 Time Seen by Provider: 08:30 Admit Day/Time Admission Date: 09/05/22 Admission Time: 22:40 Reason for Admission Chief Complaint: UTI Hospital Provider Hospital Provider: SAMEERA APARICIO PA-C, [facility] [place] Primary Care Physician Primary Care Physician: FRANCISCO STEPHENS APRN History of Present Illness History of Present Illness: Patient is a 37-year-old female with past medical history of diabetes, gastroparesis, hyperlipidemia, asthma, vitamin D deficiency, and anemia who presented to the ER with chief complaint of abdominal pain and nausea vomiting for the past 4 to 5 days. She states she is just overall not felt well. She's had low back pain. She has also had some shortness of breath. She denies any other upper respiratory symptoms such as congestion, ear pain, drainage. She denies chest pain. She denies any difficulty urinating. No burning when she urinates. In the ER she was found to have a UTI and given antibiotics. She was also found to have venous pH of 6.96. Bicarb was normal, glucose was elevated. She was started on insulin drip and fluids. CT abdomen pelvis was negative for any acute findings. She was admitted to [facility]. On my evaluation the patient is feeling better this morning. She is still complaining of nausea. She has been dry heaving. She still has some shortness of breath, states she does not normally feel short of breath at baseline. Case Discussed With Case Discussed With: Patient's case was discussed with the ER Physicians, Dr. Lee. 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 - Type 2 diabetes mellitus with diabetic autonomic (poly)neuropathy (ICD-10) K31.84 - Gastroparesis (ICD-10) Elevated cholesterol E78.00 - Pure hypercholesterolemia, unspecified (ICD-10) Iron deficiency anemia D50.9 - Iron deficiency anemia, unspecified (ICD-10) Mixed hyperlipidemia E78.2 - Mixed hyperlipidemia (ICD-10) Vitamin D deficiency E55.9 - Vitamin D deficiency, unspecified (ICD-10) Surgical History Gall Bladder Removal Family History Mother Diabetes Psychiatric disorder Cancer Hypertension FATHER Cardiac disease Psychiatric disorder Hypertension BROTHER Psychiatric disorder pgm Cerebrovascular accident mgm Psychiatric disorder Social History Smoking and tobacco status: Never smoker Alcohol intake: never Substance use type: does not use Ludmila/mandaen: HINDUISM Special ludmila needs: No Agree to transfusion: Yes Adopted: Yes Caregiver/support person: Yes (has a child) Household members: children Housing: apartment Marital status: W / Number of children: 1 Highest education level completed: high school graduate Financial difficulty paying for basics: not very hard service: No Current occupational status: disabled Current occupation: on disability since 17 y/o due to ID Pets and animals: No History of recent travel: No Sexually active: No Do you think of yourself as: straight/heterosexual Current gender identity: female Seatbelt use: always Drives intoxicated or rides with intoxicated hole digger truck driver: No Current diet type/program: regular Water heater temperature set < 120 degrees: Yes Working smoke detector in home: Yes Fire extinguisher in home: No Carbon monoxide detector in home: No Firearms in home: No Allergies Allergies Allergy/AdvReac Type Severity Reaction Status Date / Time Penicillins AdvReac Difficulty Verified 09/05/22 21:00 Breathing Current Medications Home Medications pen needle, diabetic 32 gauge x 1/4" (BD Ultra-Fine Micro Pen Needle) #120 tab- caps 02/18/22 [Rx Confirmed 09/05/22 Last Taken Unknown] ascorbic acid (vitamin C) 500 mg tablet 500 mg PO QDAY 03/01/22 [History Confirmed 09/05/22 Last Taken Unknown] blood sugar diagnostic (Blood Glucose Test strips) #100 strips 03/01/22 [Rx Confirmed 09/05/22 Last Taken Unknown] blood-glucose meter #1 ea 03/01/22 [Rx Confirmed 09/05/22 Last Taken Unknown] cholecalciferol (vitamin D3) 10 mcg (400 unit) tablet 10 mcg PO QDAY 03/01/22 [History Confirmed 09/05/22 Last Taken Unknown] ferrous sulfate 325 mg (65 mg iron) tablet 325 mg PO Q OTHER DAY 03/01/22 [History Confirmed 09/05/22 Last Taken Unknown] sumatriptan succinate 50 mg tablet See Rx Instructions PO .COMPLEX #20 tabs 03/01/22 [Rx Confirmed 09/05/22 Last Taken Unknown] vitamin e 100 units PO DAILY 03/01/22 [History Confirmed 09/05/22 Last Taken Unknown] lancets (Accu-Chek Softclix Lancets) #200 ea 03/05/22 [Rx Confirmed 09/05/22 Last Taken Unknown] blood-glucose meter,continuous (Dexcom G6 Firer Diesel Locomotive) #1 ea 05/31/22 [Rx Confirmed 09/05/22 Last Taken Unknown] blood-glucose sensor (Dexcom G6 Sensor device) #3 ea 05/31/22 [Rx Confirmed 09/05/22 Last Taken Unknown] blood-glucose transmitter (Dexcom G6 Transmitter device) #1 ea 05/31/22 [Rx Confirmed 09/05/22 Last Taken Unknown] ondansetron HCl 8 mg tablet 8 mg PO Q8H PRN nausea and vomiting #90 tabs 06/30/22 [Rx Confirmed 09/05/22 Last Taken Unknown] amitriptyline 10 mg tablet 10 mg PO QDAY 90 days #90 tabs 08/13/22 [Rx Confirmed 09/05/22 Last Taken Unknown] gabapentin 400 mg capsule 400 mg PO TID #90 caps 08/13/22 [Rx Confirmed 09/05/22 Last Taken Unknown] dulaglutide 3 mg/0.5 mL subcutaneous pen injector (Trulicity) See Rx Instructions .Route .COMPLEX #2 inserts 08/27/22 [Rx Confirmed 09/05/22 Last Taken Unknown] acetaminophen 325 mg capsule (Tylenol) 650 mg PO Q6H PRN PAIN/FEVER 08/31/22 [History Confirmed 09/05/22 Last Taken Unknown] bupropion HCl 300 mg 24 hr tablet, extended release (Wellbutrin XL) 300 mg PO QAM #30 tabs 08/31/22 [Rx Confirmed 09/05/22 Last Taken Unknown] fluoxetine 20 mg capsule (Prozac) 20 mg PO QDAY #30 caps 08/31/22 [Rx Confirmed 09/05/22 Last Taken Unknown] ibuprofen 200 mg tablet 400 mg PO Q6H PRN PAIN/FEVER 08/31/22 [History Confirmed 09/05/22 Last Taken Unknown] Lantus Solostar U-100 Insulin 100 unit/mL (3 mL) subcutaneous pen (insulin glargine) 15 unit (0.15 mL) subcut QPM 30 days #4.5 mL 09/01/22 [Rx Confirmed 09/05/22 Last Taken Unknown] Novolog FlexPen U-100 Insulin 100 unit/mL (3 mL) subcutaneous (insulin aspart U- 100) 12 unit (0.12 mL) subcut TID 30 days #10.8 mL 09/01/22 [Rx Confirmed 09/05/22 Last Taken Unknown] losartan 100 mg-hydrochlorothiazide 25 mg tablet 1 tab PO DAILY 30 days #30 tabs 09/01/22 [Rx Confirmed 09/05/22 Last Taken Unknown] mupirocin 2 % topical ointment 1 applic topical TID 7 days #15 grams 09/01/22 [Rx Confirmed 09/05/22 Last Taken Unknown] pantoprazole 40 mg tablet,delayed release 40 mg PO QDAY 30 days #30 tabs 09/01/22 [Rx Confirmed 09/05/22 Last Taken Unknown] diclofenac sodium 1 % topical gel 2 g topical BID PRN JOINT PAIN 09/05/22 [History Confirmed 09/05/22 Last Taken Unknown] Home Acetaminophen (Acetaminophen 325 Mg Tablet) 650 mg PO Q4H PRN PRN Reason: Mild Pain Amitriptyline HCl (Amitriptyline Hcl 10 Mg Tablet) 10 mg PO DAILY [facility] Last Admin: 09/06/22 11:46 Dose: 10 mg Bupropion HCl (Bupropion Hcl 150 Mg Tab.Er.24h) 300 mg PO QAM [facility] Last Admin: 09/06/22 11:46 Dose: 300 mg Enoxaparin Sodium (Enoxaparin Sodium 40 Mg/0.4 Ml Syr) 40 mg SUBCUT DAILY [facility] Last Admin: 09/06/22 11:47 Dose: 40 mg Ferrous Sulfate (Ferrous Sulfate 324 Mg Tablet.Dr) 324 mg PO Q48HR [facility] Last Admin: 09/06/22 11:53 Dose: Not Given Fluoxetine HCl (Fluoxetine Hcl 20 Mg Capsule) 20 mg PO DAILY [facility] Last Admin: 09/06/22 11:46 Dose: 20 mg Gabapentin (Gabapentin 100 Mg Capsule) 100 mg PO TID [facility] Gabapentin (Gabapentin 300 Mg Capsule) 300 mg PO TID [facility] HCTZ/Losartan Potassium (Losartan/Hydrochlorothiazide 50/12.5 Mg Tab) 2 tab PO DAILY [facility] Last Admin: 09/06/22 11:46 Dose: 2 tab CEFTRIAXONE/D5W 1 GM PREMIX (Rocephin 1 Gm/50 Ml D5w) 1 gm in 50 mls @ 75 mls/hr IV BEDTIME EB Stop: 09/09/22 20:59 Lactated Ringer's (Lactated Ringers) 1,000 mls @ 125 mls/hr IV .Q8H [facility] Last Admin: 09/06/22 10:01 Dose: 125 mls/hr Insulin Glargine (Insulin Glargine,Hum.Rec.Anlog 100 Units/Ml) 15 unit SUBCUT QPM [facility] Insulin Human Regular (Insulin Regular, Human 100 Unit/Ml (3ml) Vial) 0 unit SUBCUT PRN PRN; Protocol PRN Reason: Hyperglycemia Ondansetron HCl (Ondansetron Hcl/Pf 4 Mg/2 Ml Sdv) 4 mg IVP Q6H PRN PRN Reason: Nausea / Vomiting Last Admin: 09/06/22 04:09 Dose: 4 mg Pantoprazole Sodium (Pantoprazole Sodium 40 Mg Vial) 40 mg IVP DAILY [facility] Last Admin: 09/06/22 11:46 Dose: 40 mg Sodium Chloride (0.9% Sodium Chloride 10 Ml Disp.Syrin) 1 syr IVF PRN PRN PRN Reason: To flush IV Last Admin: 09/05/22 21:11 Dose: 1 syr Discontinued Medications Sodium Chloride (Sodium Chloride) 1,000 mls @ 1,000 mls/hr IV BOLUS STA Stop: 09/05/22 22:27 Last Admin: 09/05/22 21:37 Dose: 1,000 mls/hr Sodium Chloride (Sodium Chloride) 1,000 mls @ 1,000 mls/hr IV BOLUS STA Stop: 09/05/22 22:34 Last Admin: 09/05/22 22:01 Dose: Not Given Potassium Chloride/Dextrose/Sod Cl (D5%-1/2ns-Kcl 40 Meq/L Iv Caitlyn) 1,000 mls @ 250 mls/hr IV .Q4H [facility] Last Admin: 09/05/22 22:02 Dose: 250 mls/hr Sodium Chloride (Sodium Chloride) 1,000 mls @ 1,000 mls/hr IV BOLUS STA Stop: 09/05/22 23:00 Last Admin: 09/05/22 22:38 Dose: 1,000 mls/hr INSULIN REGULAR IN 0.9 % NACL (Myxredlin 100 Unit/100 Ml Bag) 100 unit in 100 mls @ 13.156 mls/hr IV TITRATION [facility]; Protocol Last Titration: 09/06/22 10:01 Dose: 0 unit/kg/hr, 0 mls/hr Potassium Chloride/Sodium Chloride (Sodium Chloride 0.9%-Kcl 20 Meq) 1,000 mls @ 250 mls/hr IV .Q4H [facility] Last Admin: 09/06/22 07:38 Dose: Not Given Potassium Chloride/Dextrose/Sod Cl (D5%-1/2ns-Kcl 40 Meq/L Iv Caitlyn) 1,000 mls @ 250 mls/hr IV .Q4H [facility] Last Admin: 09/06/22 04:31 Dose: 250 mls/hr Potassium Chloride/Dextrose/Sod Cl (D5%-1/2ns-Kcl 40 Meq/L Iv Caitlyn) 1,000 mls @ 250 mls/hr IV .Q4H [facility] Last Admin: 09/06/22 07:39 Dose: Not Given Potassium Chloride/Sodium Chloride (Sodium Chloride 0.9%-Kcl 20 Meq) 1,000 mls @ 250 mls/hr IV .Q4H [facility] Last Admin: 09/06/22 07:35 Dose: 250 mls/hr Insulin Human Regular (Insulin Regular, Human 100 Unit/Ml (3ml) Vial) 10 unit IVP ONCE STA Stop: 09/05/22 21:34 Last Admin: 09/05/22 21:47 Dose: 10 unit Ondansetron HCl (Ondansetron Hcl/Pf 4 Mg/2 Ml Sdv) 4 mg IVP ONCE STA Stop: 09/05/22 20:39 Last Admin: 09/05/22 21:11 Dose: 4 mg Review of Systems Constitutional: Denies Fever Head: Reports Normocephalic and Atraumatic Eyes: Denies Vision Changes Ears: Denies Pain Nose: Denies Post Nasal Drip or Congestion Mouth: Denies Sores Throat: Denies Sore Throat or Difficulty Swallowing Cardiovascular: Denies Chest pain, Chest Pressure or Edema Respiratory: Reports Shortness of air; Denies Cough or Wheeze Gastrointestinal: Reports Nausea, Vomiting and Abdominal pain; Denies Diarrhea Genitourinary: Denies Dysuria or Frequency Dermatologic: Denies Rashes Neurological: Reports Dizziness; Denies Headache, Syncope or Weakness Physical examination Most Recent Vital Signs: Most Recent Vital Signs Temperature 96.8 F L 09/06/22 10:00 Temperature Source Temporal Artery Scan 09/06/22 10:00 Temperature Source Infrared 09/05/22 20:41 Pulse Rate 96 09/06/22 10:00 Respiratory Rate 15 09/06/22 10:00 Blood Pressure 144/92 H 09/06/22 10:00 Blood Pressure Mean 109 09/06/22 10:00 Blood Pressure Left Arm 125/78 09/05/22 23:34 Blood Pressure Location Left Radial Artery 09/06/22 10:00 Blood Pressure Position Supine 09/06/22 10:00 O2 Sat by Pulse Oximetry 98 09/06/22 10:00 Oxygen Delivery Method Room Air 09/06/22 10:00 Height 5 ft 2 in 09/06/22 07:18 Weight 290 lb 09/06/22 07:18 Telemetry Type Remote Telemetry 09/06/22 07:00 Telemetry Monitoring Continues 09/06/22 07:00 Telemetry Heart Rate 103 H 09/06/22 07:00 EKG MN Interval 0.13 09/06/22 07:00 EKG QRS Interval 0.09 09/06/22 07:[address] 09/06/22 07:00 Appearance: Positive Well-appearing, Well-nourished, No Apparent Distress and Obese Skin: Positive [place] and Warm; Negative Rashes HEENT: Positive Normocephalic and Atraumatic Neck: Positive Supple and Midline Trachea Chest/Lungs: Positive Symmetrical With Equal Breath Sounds and Clear to Auscultation Bilaterally; Negative Rales, Rhonci or Wheezes Heart: Positive RRR GI/: Positive Soft, Nontender, Bowel Sounds Normal, No Distention and Other (Patient dry heaves during exam ) Extremities: Negative Edema Neurological: Positive Cranial Nerves Intact, Alert, Oriented and Muscle Strength 5/5 in Upper and Lower Extremities Bilaterally Psychiatric: Positive Oriented x4 and Appropriate Mood Labs This Visit Labs This Visit: Labs This Visit 09/05/22 09/05/22 09/05/22 00:05 19:10 20:35 WBC RBC Hgb Hct MCV MCH MCHC RDW Coeff of Rod Plt Count Immature Gran % (Auto) Neut % (Auto) Lymph % (Auto) [place] % (Auto) Eos % (Auto) Baso % (Auto) Neut # (Auto) Lymph # (Auto) [place] # (Auto) Eos # (Auto) Baso # (Auto) Immature Gran # (Auto) VBG pH VBG pCO2 VBG pO2 VBG HCO3 VBG O2 Saturation Sodium 134.4 L Potassium 3.97 Chloride 93.7 L Carbon Dioxide 28.6 Anion Gap 16.07 BUN 24.6 H Creatinine 1.15 Estimated GFR (MDRD) 64.00 BUN/Creatinine Ratio 21.39 Glucose 360.7 H Lactic Acid Calcium 9.00 Magnesium 1.62 Total Bilirubin 0.80 AST 45.5 H ALT 52.3 H Alkaline Phosphatase 292.9 H Total Protein 8.84 H Albumin 3.72 Globulin 5.12 Albumin/Globulin Ratio 0.72 Lipase Urine Color Yellow Urine Clarity Clear Urine pH 5.0 Ur Specific [place] 1.020 Urine Protein 3+ H Urine Glucose (UA) 3+ H Urine Ketones 1+ H Urine Blood 3+ H Urine Nitrite Positive H Urine Bilirubin 2+ H Urine Urobilinogen 2.0 H Ur Leukocyte Esterase 1+ H Urine Microscopic RBC 20-30 Urine Microscopic WBC 5-10 Ur Squamous Epith Cells 2-5 Urine Bacteria 3+ Urine Test Negative Acetone, Qual 09/05/22 09/05/22 09/06/22 21:00 23:05 02:30 WBC 13.58 H RBC 4.15 L Hgb 11.6 L Hct 35.5 L MCV 85.5 MCH 28.0 MCHC 32.7 RDW Coeff of Rod 13.7 Plt Count 513 H Immature Gran % (Auto) 0.5 Neut % (Auto) 82.3 H Lymph % (Auto) 11.9 [place] % (Auto) 5.2 Eos % (Auto) 0.0 Baso % (Auto) 0.1 Neut # (Auto) 11.2 H Lymph # (Auto) 1.6 [place] # (Auto) 0.7 Eos # (Auto) 0.0 Baso # (Auto) 0.0 Immature Gran # (Auto) 0.1 VBG pH 6.96 L VBG pCO2 73 H VBG pO2 200 H VBG HCO3 16.4 L VBG O2 Saturation 99.2 H Sodium 134.2 L 136.5 Potassium 3.87 3.79 Chloride 92.8 L 95.5 L Carbon Dioxide 25.3 25.5 Anion Gap 19.97 19.29 BUN 22.4 H 23.7 H Creatinine 1.24 1.02 Estimated GFR (MDRD) 58.00 73.00 BUN/Creatinine Ratio 18.06 23.23 Glucose 368.6 H 330.3 H Lactic Acid 1.26 Calcium 9.47 9.09 Magnesium Total Bilirubin 0.88 AST 46.8 H ALT 55.4 H Alkaline Phosphatase 309.8 H Total Protein 9.19 H Albumin 3.94 Globulin 5.25 Albumin/Globulin Ratio 0.75 Lipase 31.6 Urine Color Urine Clarity Urine pH Ur Specific [place] Urine Protein Urine Glucose (UA) Urine Ketones Urine Blood Urine Nitrite Urine Bilirubin Urine Urobilinogen Ur Leukocyte Esterase Urine Microscopic RBC Urine Microscopic WBC Ur Squamous Epith Cells Urine Bacteria Urine Test Acetone, Qual Small 09/06/22 09/06/22 09/06/22 06:04 09:03 09:10 WBC 11.85 H RBC 3.96 L Hgb 11.1 L Hct 33.9 L MCV 85.6 MCH 28.0 MCHC 32.7 RDW Coeff of Rod 13.8 Plt Count 505 H Immature Gran % (Auto) 0.5 Neut % (Auto) 73.7 Lymph % (Auto) 15.9 [place] % (Auto) 9.7 Eos % (Auto) 0.0 Baso % (Auto) 0.2 Neut # (Auto) 8.7 H Lymph # (Auto) 1.9 [place] # (Auto) 1.2 Eos # (Auto) 0.0 Baso # (Auto) 0.0 Immature Gran # (Auto) 0.1 VBG pH 7.47 H VBG pCO2 32 L VBG pO2 86 H VBG HCO3 23.3 VBG O2 Saturation 97.1 H Sodium 136.1 137.9 Potassium 3.85 3.73 Chloride 98.1 100.8 Carbon Dioxide 26.1 24.7 Anion Gap 15.75 16.13 BUN 22.8 H 19.0 H Creatinine 0.92 0.76 Estimated GFR (MDRD) 82.00 103.00 BUN/Creatinine Ratio 24.78 25.00 Glucose 328.2 H 302.1 H Lactic Acid Calcium 9.06 8.98 Magnesium Total Bilirubin 0.78 AST 51.0 H ALT 52.9 H Alkaline Phosphatase 289.7 H Total Protein 8.66 H Albumin 3.69 Globulin 4.97 Albumin/Globulin Ratio 0.74 Lipase Urine Color Urine Clarity Urine pH Ur Specific [place] Urine Protein Urine Glucose (UA) Urine Ketones Urine Blood Urine Nitrite Urine Bilirubin Urine Urobilinogen Ur Leukocyte Esterase Urine Microscopic RBC Urine Microscopic WBC Ur Squamous Epith Cells Urine Bacteria Urine Test Acetone, Qual Imaging Imaging: EXAM: CT SCAN ABDOMEN PELVIS WITH CONTRAST HISTORY: Left upper quadrant pain COMPARISON: CT scan abdomen pelvis 07/27 21 FINDINGS: Postcontrast helical imaging was obtained through the abdomen pelvis utilizing 2.5-mm collimation. Sagittal and coronal reconstructions were imaged and reviewed. Visualized lung bases are clear. There has been prior cholecystectomy. The liver is enlarged with diffuse fatty infiltration. The pancreas spleen and adrenal glands have normal enhanced CT appearance. The kidneys excrete contrast in a normal fashion bilaterally.. The abdominal aorta is normal and course and caliber. The intestines demonstrate normal caliber without surrounding inflammatory changes. There is a fat-containing umbilical hernia. The bladder is decompressed limiting evaluation. Normal-appearing uterus. Bone windows reveals no lytic or blastic lesions. IMPRESSION: No acute intra-abdominal findings Hepatomegaly with fatty infiltration Review Statement Review Statement: I have independently reviewed and interpreted the labs/EKGs/imaging that were ordered by the ER provider. I have reviewed all outside records that are available currently in our EMR including imaging/notes/labs from previous visits. Plan Plan: A&P: 1. Acute pyelonephritis - Pt has low back pain, n/v, and uti. Will treat with rocephin and fluids. Blood and urine cultures pending. Zofran prn. Protonix ordered. 2. Sepsis in setting of acute pyelonephritis - Plan as above. 3. Hyperglycemia - Concern initially due to low ph on VBG for dka, however now thought to likely not be accurate. Repeat VBG this morning significantly better. Stop insulin drip and d5. Continue home meds and sliding scale. Accuchecks achs. 4. Elevated LFTs - hepatitis panel and US abd RUQ ordered. 5. Dyspnea - CXR ordered. 6. DMT2 - Continue lantus. SS as above. 7. Hypertension - Continue home meds 8. GERD - Continue protonix 9. Depression - Continue home meds DVT Prophylaxis: Lovenox Time Spent: Greater than 80 minutes spent with patient, 50% of the time spent with this patient was devoted to counseling and coordination of care. [facility] minutes spent discussing advance care planning. FULL CODE Admit to: Inpatient Discussed Plan of Care with Dr. Bryan Marcelino. Medications Medication Orders: Medications Ordered Category Date Time Status 0.9 % Sodium Chloride [Saline Flush] Meds 09/05/22 20:38 Active 1 syr IVF PRN PRN Acetaminophen [Tylenol] Meds 09/05/22 22:51 Active 650 mg PO Q4H PRN Ceftriaxone/D5w 1 gm Premix [Rocephin 1 gm/50 ml D5w] Meds 09/06/22 21:00 Active 1 gm in 50 ml IV BEDTIME Insulin Regular, Human [Humulin R] Meds 09/05/22 22:51 Active See Protocol SUBCUT PRN PRN Ondansetron HCl/Pf [Zofran 4 mg/2 ml] Meds 09/05/22 23:00 Active 4 mg IVP Q6H PRN Ringers Lactated Solution [Lactated Ringers] 1,000 ml Meds 09/06/22 09:00 A ctive IV 125 mls/hr
[2022-09-06] MEDS ORDERED: NON-FORMULARY MEDICATION (Ferrous Sulfate 325 mg (65 mg iron) tablet) PO SCH (11:15)
[2022-09-06] MEDS: WELLBUTRIN XL PO SCH (11:46)
[2022-09-06] MEDS: PROZAC PO SCH (11:46)
[2022-09-06] MEDS: PROTONIX IV IVP SCH (11:46)
[2022-09-06] MEDS: HYZAAR 50-12.5 MG TAB PO SCH (11:46)
[2022-09-06] MEDS: ELAVIL PO SCH (11:46)
[2022-09-06] MEDS: LOVENOX SUBCUT SCH (11:47)
--- NOTE | 2022-09-06 11:48 | US ---
EXAM: ULTRASOUND ABDOMINAL COMPLETE HISTORY: Elevated liver function tests. Abdominal pain. TECHNIQUE: Sonography of the abdomen was performed. Images were obtained and stored in a permanent a rchive. Color Doppler images of the main portal vein were also obtained. COMPARISON: CT abdomen pelvis 08/05/2022. FINDINGS: Pancreas: Normal sonographic appearance of the head and body. Tail is partially obscured. Liver: Diffusely hyper echogenic liver parenchyma. No lesions. - Normal antegrade flow within the main portal vein. Biliary: No duct dilation. Common bile duct measures 9 mm. Post cholecystectomy. Spleen: Partially obscured. No visible lesion in the imaged portion. Right Kidney: No hydronephrosis. No lesions. No calculus. Left Kidney: No hydronephrosis. No lesions. No calculus. IVC: Patent on color Doppler. No abnormality on grimm scale image. Aorta: No aneurysmal dilatation in visualized portions. Other: No ascites. IMPRESSION: Hyper echogenic liver parenchyma consistent with steatosis. Dilated common bile duct measuring 9 mm. This could be physiologic post cholecystectomy, though bili rosalino obstruction is also possible.
[2022-09-06] MEDS: FERROUS SULFATE PO SCH (11:53)
--- NOTE | 2022-09-06 14:11 | DI ---
EXAM: FRONTAL AND LATERAL VIEWS OF THE CHEST. HISTORY: Shortness of breath COMPARISON: 07/22/2021 FINDINGS: Cardiac silhouette is normal. Atelectasis versus early infiltrate left lung base. No pleural effusion or pneumothorax. No acute osseous abnormality. IMPRESSION: 1. Basilar atelectasis versus early infiltrate on the left.
[2022-09-06] MEDS ORDERED: NON-FORMULARY MEDICATION (Gabapentin 400 mg capsule) PO SCH (15:00)
[2022-09-06] MEDS: NEURONTIN PO SCH ×4 (15:25→20:14)
[2022-09-06] MEDS ORDERED: LANTUS SUBCUT SCH (17:00)
[2022-09-06] MEDS: HUMULIN R SUBCUT PRN ×2 (17:16→20:16)
[2022-09-06] MEDS: REGLAN IVP PRN (19:20)
[2022-09-06] MEDS: LANTUS SUBCUT SCH (20:15)
[2022-09-06] MEDS: ROCEPHIN 1 GM/50 ML D5W 1 GM/50 ML BAG IV SCH (20:25)
[2022-09-07] MEDS: LACTATED RINGERS 1,000 ML IV SCH ×3 (03:04→18:37)
[2022-09-07 05:19] LABS: BASOPHILS % (AUTO) 0.3 % (0.0-3.0); EOSINOPHILS % (AUTO) 0.1 % (0.0-7.0); HEMATOCRIT 34.4 % (37.0-47.0); HEMOGLOBIN 11.1 g/dl (12.0-16.0); IMMATURE GRANULOCYTE # (AUTO) 0.1 (0.0-1.0); IMMATURE GRANULOCYTE % (AUTO) 0.4 % (0.0-5.0); LYMPHOCYTES # (AUTO) 2.7 K/uL (0.60-3.4); LYMPHOCYTES % (AUTO) 22.9 (10.0-50.0); MEAN CORPUSCULAR HGB CONC 32.3 (31.8-35.4); MEAN CORPUSCULAR VOLUME 86.9 fl (81.0-99.0); MONOCYTES # (AUTO) 0.9 K/uL (0.4-2.0); MONOCYTES % (AUTO) 7.3 (0-10); NEUTROPHILS # (AUTO) 8.2 K/ul (2.0-6.9); PLATELET COUNT 338 10^3/uL (140-440); RDW COEFFICIENT OF VARIATION 14.1 % (11.6-14.8); RED BLOOD COUNT 3.96 10^6/ul (4.20-5.40); WHITE BLOOD COUNT 11.85 K/ul (4.6-10.2)
[2022-09-07 05:37] LABS: ALANINE AMINOTRANSFERASE 42.4 U/L (0-35); ALBUMIN 3.29 g/dL (3.5-5.0); ASPARTATE AMINO TRANSFERASE 30.9 U/L (14-36); BILIRUBIN,TOTAL 0.65 mg/dL (0.2-1.3); BLOOD UREA NITROGEN 13.9 mg/dL (7-17); CARBON DIOXIDE 29.4 mmol/L (22-30.0); CHLORIDE 100.2 mmol/L (98-107); CREATININE 0.48 mg/dL (0.60-1.30); GLUCOSE 281.3 mg/dL (74-106); POTASSIUM 3.82 mmol/L (3.5-5.1); TOTAL PROTEIN 7.84 g/dL (6.3-8.2)
[2022-09-07] MEDS: HUMULIN R SUBCUT PRN ×3 (06:08→20:31)
[2022-09-07] MEDS: PROZAC PO SCH (08:57)
[2022-09-07] MEDS: HYZAAR 50-12.5 MG TAB PO SCH (08:57)
[2022-09-07] MEDS: LOVENOX SUBCUT SCH (08:58)
[2022-09-07] MEDS: NEURONTIN PO SCH ×6 (08:58→20:28)
[2022-09-07] MEDS: WELLBUTRIN XL PO SCH (08:58)
[2022-09-07] MEDS: ELAVIL PO SCH (08:58)
[2022-09-07] MEDS: PROTONIX IV IVP SCH (08:59)
[2022-09-07] MEDS ORDERED: NON-FORMULARY MEDICATION (Losartan-Hydrochlorothiazide 100-25 mg tablet) PO SCH (09:00)
--- NOTE | 2022-09-07 09:24 | PCM.PROG ---
Date/Time Seen Date Seen by Provider: 09/07/22 Time Seen by Provider: 08:30 Provider Provider: SAMEERA APARICIO [facility]-C[facility] Chief Complaint Chief Complaint: UTI Subjective Subjective: Patient states she's feeling better today. No n/v this morning. SOB resolved. Low back pain improved. She has not had issues urinating. Blood culture x1 positive yesterday evening. Objective Appearance: Positive Well-appearing, Well-nourished, No Apparent Distress and Obese Chest/Lungs: Positive Symmetrical With Equal Breath Sounds and Clear to Auscultation Bilaterally; Negative Rales, Rhonci or Wheezes Heart: Positive RRR GI/: Positive Soft, Nontender, Bowel Sounds Normal and No Distention Neurological: Positive Cranial Nerves Intact, Alert, Oriented and Muscle Strength 5/5 in Upper and Lower Extremities Bilaterally Vital Signs Vital Signs: Vital Signs: Last 24 Hours 09/06/22 10:00 09/06/22 14:00 09/06/22 13:00 Temperature 96.8 F L 96.6 F L Temperature Source Temporal Artery Scan Temporal Artery Scan Pulse Rate 96 97 Respiratory Rate 15 15 Blood Pressure 144/92 H 153/95 H Blood Pressure Mean 109 114 Blood Pressure Location Left Radial Artery Left Radial Artery Blood Pressure Position Supine Sitting O2 Sat by Pulse Oximetry 98 98 Oxygen Delivery Method Room Air Room Air Telemetry Type Remote Telemetry Telemetry Monitoring Continues Telemetry Heart Rate 97 EKG KS Interval 0.13 EKG QRS Interval 0.09 EKG QT Interval Telemetry Strip Reading NSR 09/06/22 18:00 09/06/22 19:00 09/06/22 21:21 Temperature 96.8 F L 97.6 F Temperature Source Temporal Artery Scan Temporal Artery Scan Pulse Rate 94 96 Respiratory Rate 16 18 Blood Pressure 151/86 H 163/92 H Blood Pressure Mean 107 115 Blood Pressure Location Left Arm Left Radial Artery Blood Pressure Position Supine Supine O2 Sat by Pulse Oximetry 98 96 Oxygen Delivery Method Room Air Room Air Telemetry Type Remote Telemetry Telemetry Monitoring Continues Telemetry Heart Rate 109 H EKG KS Interval 0.15 EKG QRS Interval 0.06 EKG QT Interval Telemetry Strip Reading SINUS TACH 09/06/22 19:20 09/07/22 01:00 09/07/22 01:59 Temperature 97.6 F Temperature Source Temporal Artery Scan Pulse Rate 94 Respiratory Rate 18 Blood Pressure 155/92 H Blood Pressure Mean 113 Blood Pressure Location Left Arm Blood Pressure Position Supine O2 Sat by Pulse Oximetry 97 Oxygen Delivery Method Room Air Room Air Telemetry Type Remote Telemetry Telemetry Monitoring Continues Telemetry Heart Rate 95 EKG KS Interval 0.16 EKG QRS Interval 0.09 EKG QT Interval 0.32 Telemetry Strip Reading NSR no ectopy noted 09/07/22 05:12 09/07/22 07:00 Temperature 96.1 F L Temperature Source Temporal Artery Scan Pulse Rate 80 Respiratory Rate 18 Blood Pressure 137/84 Blood Pressure Mean 101 Blood Pressure Location Left Arm Blood Pressure Position Sitting O2 Sat by Pulse Oximetry 95 Oxygen Delivery Method Room Air Telemetry Type Remote Telemetry Telemetry Monitoring Continues Telemetry Heart Rate 94 EKG KS Interval 0.15 EKG QRS Interval 0.06 EKG QT Interval Telemetry Strip Reading NSR Lab Results Lab Results: Lab Results: Last 24 Hours 09/07/22 09/06/22 09/06/22 04:57 09:10 09:03 WBC 11.85 H RBC 3.96 L Hgb 11.1 L Hct 34.4 L MCV 86.9 MCH 28.0 MCHC 32.3 RDW Coeff of Rod 14.1 Plt Count 338 D Immature Gran % (Auto) 0.4 Neut % (Auto) 69.0 Lymph % (Auto) 22.9 [place] % (Auto) 7.3 Eos % (Auto) 0.1 Baso % (Auto) 0.3 Neut # (Auto) 8.2 H Lymph # (Auto) 2.7 [place] # (Auto) 0.9 Eos # (Auto) 0.0 Baso # (Auto) 0.0 Immature Gran # (Auto) 0.1 VBG pH 7.47 H VBG pCO2 32 L VBG pO2 86 H VBG HCO3 23.3 VBG O2 Saturation 97.1 H Sodium 137.0 137.9 Potassium 3.82 3.73 Chloride 100.2 100.8 Carbon Dioxide 29.4 24.7 Anion Gap 11.22 16.13 BUN 13.9 19.0 H Creatinine 0.48 L 0.76 Estimated GFR (MDRD) 175.00 103.00 BUN/Creatinine Ratio 28.95 25.00 Glucose 281.3 H 302.1 H Calcium 9.00 8.98 Total Bilirubin 0.65 AST 30.9 ALT 42.4 H Alkaline Phosphatase 206.0 H D Total Protein 7.84 Albumin 3.29 L Globulin 4.55 Albumin/Globulin Ratio 0.72 Additional Comments Additional Comments: I have independently reviewed and interpreted the labs/EKGs/imaging ordered during this hospital stay. I have reviewed outside records that are available in our EMR that pertain to medical stay including imaging/notes/labs from previous visits. EXAM: ULTRASOUND ABDOMINAL COMPLETE HISTORY: Elevated liver function tests. Abdominal pain. TECHNIQUE: Sonography of the abdomen was performed. Images were obtained and stored in a permanent archive. Color Doppler images of the main portal vein were also obtained. COMPARISON: CT abdomen pelvis 08/05/2022. FINDINGS: Pancreas: Normal sonographic appearance of the head and body. Tail is partially obscured. Liver: Diffusely hyper echogenic liver parenchyma. No lesions. - Normal antegrade flow within the main portal vein. Biliary: No duct dilation. Common bile duct measures 9 mm. Post cholecystectomy. Spleen: Partially obscured. No visible lesion in the imaged portion. Right Kidney: No hydronephrosis. No lesions. No calculus. Left Kidney: No hydronephrosis. No lesions. No calculus. IVC: Patent on color Doppler. No abnormality on grimm scale image. Aorta: No aneurysmal dilatation in visualized portions. Other: No ascites. IMPRESSION: Hyper echogenic liver parenchyma consistent with steatosis. Dilated common bile duct measuring 9 mm. This could be physiologic post cholecystectomy, though biliary obstruction is also possible. EXAM: FRONTAL AND LATERAL VIEWS OF THE CHEST. HISTORY: Shortness of breath COMPARISON: 07/22/2021 FINDINGS: Cardiac silhouette is normal. Atelectasis versus early infiltrate left lung base. No pleural effusion or pneumothorax. No acute osseous abnormality. IMPRESSION: 1. Basilar atelectasis versus early infiltrate on the left. Active Medications Active Medications: Medications Generic Name Dose Route Start Last Admin Trade Name Freq PRN Reason Stop Dose Admin Acetaminophen 650 mg 09/05/22 22:51 Acetaminophen 325 Mg Tablet PO Q4H PRN Mild Pain Amitriptyline HCl 10 mg 09/06/22 11:30 09/07/22 08:58 Amitriptyline Hcl 10 Mg Tablet PO 10 mg DAILY EB Administration Bupropion HCl 300 mg 09/06/22 11:30 09/07/22 08:58 Bupropion Hcl 150 Mg Tab.Er.24h PO 300 mg QAM EB Administration Enoxaparin Sodium 40 mg 09/06/22 11:30 09/07/22 08:58 Enoxaparin Sodium 40 Mg/0.4 Ml Syr SUBCUT 40 mg DAILY EB Administration Ferrous Sulfate 324 mg 09/06/22 11:30 09/06/22 11:53 Ferrous Sulfate 324 Mg Tablet.Dr PO Not Given Q48HR EB Fluoxetine HCl 20 mg 09/06/22 11:30 09/07/22 08:57 Fluoxetine Hcl 20 Mg Capsule PO 20 mg DAILY EB Administration Gabapentin 100 mg 09/06/22 15:00 09/07/22 09:00 Gabapentin 100 Mg Capsule PO 100 mg TID EB Administration Gabapentin 300 mg 09/06/22 15:00 09/07/22 08:58 Gabapentin 300 Mg Capsule PO 300 mg TID EB Administration HCTZ/Losartan Potassium 2 tab 09/06/22 11:30 09/07/22 08:57 Losartan/Hydrochlorothiazide 50/12.5 Mg Tab PO 2 tab DAILY EB Administration CEFTRIAXONE/D5W 1 GM PREMIX 1 gm in 50 mls @ 75 mls/hr 09/06/22 21:00 09/06/22 20:25 Rocephin 1 Gm/50 Ml D5w IV 09/09/22 20:59 75 mls/hr BEDTIME EB Administration Lactated Ringer's 1,000 mls @ 125 mls/hr 09/06/22 09:00 09/07/22 03:04 Lactated Ringers IV 125 mls/hr .Q8H EB Administration Insulin Glargine 15 unit 09/06/22 21:00 09/06/22 20:15 Insulin Glargine,Hum.Rec.Anlog 100 Units/Ml SUBCUT 15 unit BEDTIME EB Administration Insulin Human Regular 0 unit 09/05/22 22:51 09/07/22 06:08 Insulin Regular, Human 100 Unit/Ml (3ml) Vial SUBCUT 6 unit PRN PRN Administration Hyperglycemia Protocol Metoclopramide HCl 5 mg 09/06/22 18:27 09/06/22 19:20 Metoclopramide Hcl 10 Mg/2 Ml IVP 5 mg Q6H PRN Administration Nausea / Vomiting Ondansetron HCl 4 mg 09/05/22 23:00 09/06/22 17:16 Ondansetron Hcl/Pf 4 Mg/2 Ml Sdv IVP 4 mg Q6H PRN Administration Nausea / Vomiting Pantoprazole Sodium 40 mg 09/06/22 11:30 09/07/22 08:59 Pantoprazole Sodium 40 Mg Vial IVP 40 mg DAILY EB Administration Sodium Chloride 1 syr 09/05/22 20:38 09/05/22 21:11 0.9% Sodium Chloride 10 Ml Disp.Syrin IVF 1 syr PRN PRN Administration To flush IV Plan Plan: 1. Acute pyelonephritis - Improving. Continue with rocephin and fluids. Blood and urine cultures pending. Unfortunately urine culture was not reflexed and not obtained until after abx initiated. Prelim is negative for growth, however likely not accurate. Zofran prn. Protonix ordered. 2. Bacteremia in setting of acute pyelonephritis - One bottle positive for gram negative rods. Cont abx. Will repeat blood cultures. 3. Sepsis in setting of acute pyelonephritis - Plan as above. 4. Hyperglycemia - Concern initially due to low ph on VBG for dka. Repeat VBG on 09/06 significantly better. Stop insulin drip and d5. Continue home meds and sliding scale. Accuchecks achs. 4. Elevated LFTs - hepatitis panel pending. US showing fatty liver and CBD of 9 mm post micaela. Likely elevated in setting of sepsis. 5. Dyspnea - CXR ordered showing atelectasis vs early pna. Pt does not have a cough or any uri symptoms except sob which is now resolved. 6. DMT2 - Continue lantus. SS as above. 7. Hypertension - Continue home meds 8. GERD - Continue protonix 9. Depression - Continue home meds DVT Prophylaxis: Lovenox Review Statement Review Statement: I have personally discussed and reviewed the patient's visit/currently labs/imaging/decision making with Dr. Marcelino, my supervising attending. Greater that 50 minutes spent with patient, 50% of the time spent with this patient was devoted to counseling and coordination of care.
[2022-09-07] MEDS ORDERED: HUMALOG SUBCUT ONE (11:29)
[2022-09-07] MEDS ORDERED: HUMULIN R SUBCUT STA (11:35)
[2022-09-07] MEDS: REGLAN IVP PRN ×2 (14:27→20:28)
[2022-09-07] MEDS: ZOFRAN 4 MG/2 ML IVP PRN (16:25)
[2022-09-07] MEDS: ROCEPHIN 1 GM/50 ML D5W 1 GM/50 ML BAG IV SCH (20:29)
[2022-09-07] MEDS: LANTUS SUBCUT SCH (20:30)
[2022-09-08] MEDS: LACTATED RINGERS 1,000 ML IV SCH ×4 (03:17→21:06)
[2022-09-08] MEDS: ZOFRAN 4 MG/2 ML IVP PRN (04:08)
[2022-09-08 05:44] LABS: BASOPHILS % (AUTO) 0.3 % (0.0-3.0); EOSINOPHILS % (AUTO) 0.3 % (0.0-7.0); HEMATOCRIT 33.6 % (37.0-47.0); HEMOGLOBIN 10.8 g/dl (12.0-16.0); IMMATURE GRANULOCYTE % (AUTO) 0.3 % (0.0-5.0); LYMPHOCYTES # (AUTO) 2.1 K/uL (0.60-3.4); LYMPHOCYTES % (AUTO) 20.3 (10.0-50.0); MEAN CORPUSCULAR HEMOGLOBIN 27.7 pg (27.0-31.0); MEAN CORPUSCULAR HGB CONC 32.1 (31.8-35.4); MEAN CORPUSCULAR VOLUME 86.2 fl (81.0-99.0); MONOCYTES # (AUTO) 0.7 K/uL (0.4-2.0); MONOCYTES % (AUTO) 6.8 (0-10); NEUTROPHILS # (AUTO) 7.3 K/ul (2.0-6.9); PLATELET COUNT 534 10^3/uL (140-440); RDW COEFFICIENT OF VARIATION 13.8 % (11.6-14.8); WHITE BLOOD COUNT 10.19 K/ul (4.6-10.2)
[2022-09-08 06:01] LABS: ALBUMIN 3.37 g/dL (3.5-5.0); ALKALINE PHOSPHATASE 186.9 U/L (38-126); ASPARTATE AMINO TRANSFERASE 22.7 U/L (14-36); BILIRUBIN,TOTAL 0.65 mg/dL (0.2-1.3); BLOOD UREA NITROGEN 7.7 mg/dL (7-17); CALCIUM 8.83 mg/dL (8.4-10.2); CARBON DIOXIDE 34.6 mmol/L (22-30.0); CHLORIDE 95.7 mmol/L (98-107); CREATININE 0.45 mg/dL (0.60-1.30); GLUCOSE 250.1 mg/dL (74-106); POTASSIUM 3.24 mmol/L (3.5-5.1); SODIUM 135.9 mmol/L (134.5-145); TOTAL PROTEIN 7.9 g/dL (6.3-8.2)
[2022-09-08] MEDS: HUMULIN R SUBCUT PRN ×4 (06:18→21:10)
[2022-09-08] MEDS: FERROUS SULFATE PO SCH (08:38)
[2022-09-08] MEDS: PROZAC PO SCH (08:38)
[2022-09-08] MEDS: NEURONTIN PO SCH ×6 (08:38→21:10)
[2022-09-08] MEDS: HYZAAR 50-12.5 MG TAB PO SCH (08:39)
[2022-09-08] MEDS: ELAVIL PO SCH (08:39)
[2022-09-08] MEDS: WELLBUTRIN XL PO SCH (08:40)
[2022-09-08] MEDS: LOVENOX SUBCUT SCH (08:40)
[2022-09-08] MEDS: PROTONIX IV IVP SCH (09:02)
[2022-09-08 09:13] LABS: HBsAgSCREEN Negative (Negative); HCV ANTIBODY Non Reactive (Non Reactive); HEP A AB, IgM Negative (Negative); HEP B CORE Ab, IgM Negative (Negative)
[2022-09-08] MEDS ORDERED: REGLAN IVP PRN (10:25)
--- NOTE | 2022-09-08 10:32 | CT ---
EXAM: CT ABDOMEN PELVIS WITH INTRAVENOUS CONTRAST 09/08/2022. SAGITTAL AND CORONAL REFORMATTED IMAG ES OBTAINED HISTORY: Abdominal pain. Nausea and vomiting COMPARISON: 09/05/2022 FINDINGS: Bibasilar atelectasis. The liver shows no acute process. The gallbladder has been remove d. The adrenal glands are unremarkable. There is bilateral perinephric stranding with retroperitone al edema. Ill-defined low density is present within the anterior aspect of the superior pole of the right kidney as seen on images 20 - 22. This most likely represents pyelonephritis. Other etiologie s not excluded. Ultrasound would also be obtained for further evaluation. The spleen and pancreas show no acute process. There is no evidence of bowel obstruction. Normal appendix. No wall perivesicular stranding. Cysti tis is not excluded. No free air. No free fluid. IMPRESSION: 1. Bilateral perinephric and retroperitoneal stranding / edema. 2. Ill-defined low density within the anterior superior pole of the right kidney. This likely repre sents pyelonephritis. Other etiologies not excluded. Ultrasound could also be obtained for further characterization. 3. Minimal perivesicular stranding. Cystitis not excluded. 4. No urinary or bowel obstruction and normal appendix. All CT scans are performed using dose optimization techniques as appropriate to the performed exam an d include at least one of the following: Automated exposure control, adjustment of the mA and/or kV according t o size, and the use of iterative reconstruction technique.
--- NOTE | 2022-09-08 10:36 | CT ---
EXAM: CT CHEST WITH CONTRAST HISTORY: Dyspnea, nausea and vomiting COMPARISON: None TECHNIQUE: Multi-slice transaxial helical images are acquired through the thorax with coronal and sa gittal reconstructed images. All CT scans are performed using dose optimization techniques as approp riate to the performed exam and includes at least one of the following: Automated exposure control, adjustment of the mA and/or kV according to size, and the use of iterative reconstruction technique. CONTRAST: Intravenous FINDINGS: The heart size is normal. There is suggestion of minimal anterior mediastinal thymic soft tissue. No suspicious lymphadenopathy. Minimal dependent atelectasis. No acute infiltrates. No n odules or masses. There is a hypo enhancement at the superior pole of the right kidney. The solid organs otherwise nor mal in their visualized portions of the upper abdomen. No suspicious bone lesions or acute osseous abnormalities. IMPRESSION: 1. Minimal dependent atelectasis. 2. No acute infiltrates. 3. Probable pyelonephritis at the superior pole of the right kidney. Clinically correlate. . All CT scans are performed using dose optimization techniques as appropriate to the performed exam an d include at least one of the following: Automated exposure control, adjustment of the mA and/or kV according t o size, and the use of iterative reconstruction technique.
[2022-09-08] MEDS ORDERED: POTASSIUM CHLORIDE 20 MEQ/100 ML PREMIX 20 MEQ/100 ML BAG IV ONE (10:51)
--- NOTE | 2022-09-08 10:55 | PCM.PROG ---
Date/Time Seen Date Seen by Provider: 09/08/22 Time Seen by Provider: 08:30 Provider Provider: [facility] AP[facility]IO [facility] Chief Complaint Chief Complaint: UTI Subjective Subjective: Patient is still having n/v, unable to tolerate PO diet. She feels tired today. Still having upper abdominal pain. Labs improving. BC positive for e coli sensit tisha to rocephin. Objective Appearance: Positive Well-appearing, Well-nourished, No Apparent Distress and Obese Chest/Lungs: Positive Symmetrical With Equal Breath Sounds and Clear to Auscultation Bilaterally; Negative Rales, Rhonci or Wheezes Heart: Positive RRR GI/: Positive Soft, Bowel Sounds Normal, No Distention and Tender (epigatric) Neurological: Positive Cranial Nerves Intact, Alert, Oriented and Muscle Strength 5/5 in Upper and Lower Extremities Bilaterally Additional Findings: Skin: Thickened skin to upper back, patient states it's been this way for years. Vital Signs Vital Signs: Vital Signs: Last 24 Hours 09/07/22 13:00 09/07/22 14:00 09/07/22 18:00 Temperature 96.9 F L 97.1 F L Temperature Source Temporal Artery Scan Temporal Artery Scan Pulse Rate 87 84 Respiratory Rate 15 14 Blood Pressure 176/112 H 157/89 H Blood Pressure Mean 133 111 Blood Pressure Location Right Radial Artery Right Radial Artery Blood Pressure Position Sitting Supine O2 Sat by Pulse Oximetry 99 98 Oxygen Delivery Method Room Air Room Air Telemetry Type Remote Telemetry Telemetry Monitoring Continues Telemetry Heart Rate 90 EKG [place] Interval 0.14 EKG QRS Interval 0.06 EKG QT Interval Telemetry Strip Reading NSR 09/07/22 14:44 09/07/22 20:00 09/07/22 21:27 Temperature 97.6 F Temperature Source Temporal Artery Scan Pulse Rate 87 Respiratory Rate 18 Blood Pressure 163/105 H 154/88 H Blood Pressure Mean 124 110 Blood Pressure Location Right Radial Artery Blood Pressure Position Supine O2 Sat by Pulse Oximetry 97 Oxygen Delivery Method Room Air Room Air Room Air Telemetry Type Telemetry Monitoring Telemetry Heart Rate EKG NV Interval EKG QRS Interval EKG QT Interval Telemetry Strip Reading 09/07/22 19:00 09/08/22 01:00 09/08/22 02:00 Temperature 96.5 F L Temperature Source Temporal Artery Scan Pulse Rate 78 Respiratory Rate 18 Blood Pressure 139/77 Blood Pressure Mean 97 Blood Pressure Location Right Radial Artery Blood Pressure Position Supine O2 Sat by Pulse Oximetry 95 Oxygen Delivery Method Room Air Telemetry Type Remote Telemetry Remote Telemetry Telemetry Monitoring Continues Continues Telemetry Heart Rate 88 82 EKG NV Interval 0.14 0.14 EKG QRS Interval 0.09 0.10 EKG QT Interval 0.32 0.33 Telemetry Strip Reading SR SR no ectopy noted 09/08/22 05:18 09/08/22 07:00 09/08/22 10:00 Temperature 96.5 F L 97.7 F Temperature Source Temporal Artery Scan Oral Pulse Rate 85 79 Respiratory Rate 18 18 Blood Pressure 150/84 H 150/98 H Blood Pressure Mean 106 115 Blood Pressure Location Right Radial Artery Right Radial Artery Blood Pressure Position Supine Sitting O2 Sat by Pulse Oximetry 97 97 Oxygen Delivery Method Room Air Room Air Telemetry Type Remote Telemetry Telemetry Monitoring Continues Telemetry Heart Rate 87 EKG NV Interval 0.14 EKG QRS Interval 0.09 EKG QT Interval Telemetry Strip Reading SR Lab Results Lab Results: Lab Results: Last 24 Hours 09/08/22 09/07/22 05:18 06:18 WBC 10.19 RBC 3.90 L Hgb 10.8 L Hct 33.6 L MCV 86.2 MCH 27.7 MCHC 32.1 RDW Coeff of Rod 13.8 Plt Count 534 H D Immature Gran % (Auto) 0.3 Neut % (Auto) 72.0 Lymph % (Auto) 20.3 [place] % (Auto) 6.8 Eos % (Auto) 0.3 Baso % (Auto) 0.3 Neut # (Auto) 7.3 H Lymph # (Auto) 2.1 [place] # (Auto) 0.7 Eos # (Auto) 0.0 Baso # (Auto) 0.0 Immature Gran # (Auto) 0.0 Sodium 135.9 Potassium 3.24 L Chloride 95.7 L Carbon Dioxide 34.6 H Anion Gap 8.84 BUN 7.7 Creatinine 0.45 L Estimated GFR (MDRD) 188.00 BUN/Creatinine Ratio 17.11 Glucose 250.1 H Calcium 8.83 Total Bilirubin 0.65 AST 22.7 ALT 35.0 Alkaline Phosphatase 186.9 H Total Protein 7.90 Albumin 3.37 L Globulin 4.53 Albumin/Globulin Ratio 0.74 Lipase 25.4 Procalcitonin 0.51 H Hepatitis A IgM Ab Negative Hep Bs Antigen Negative Hep B Core IgM Ab Negative Hepatitis C Antibody Non reactive Additional Comments Additional Comments: I have independently reviewed and interpreted the labs/EKGs/imaging ordered during this hospital stay. I have reviewed outside records that are available in our EMR that pertain to medical stay including imaging/notes/labs from previous visits. EXAM: CT ABDOMEN PELVIS WITH INTRAVENOUS CONTRAST 09/08/2022. SAGITTAL AND CORONAL REFORMATTED IMAGES OBTAINED HISTORY: Abdominal pain. Nausea and vomiting COMPARISON: 09/05/2022 FINDINGS: Bibasilar atelectasis. The liver shows no acute process. The gallbladder has been removed. The adrenal glands are unremarkable. There is bilateral perinephric stranding with retroperitoneal edema. Ill-defined low density is present within the anterior aspect of the superior pole of the right kidney as seen on images 20 - 22. This most likely represents pyelonephritis. Other etiologies not excluded. Ultrasound would also be obtained for further evaluation. The spleen and pancreas show no acute process. There is no evidence of bowel obstruction. Normal appendix. No wall perivesicular stranding. Cystitis is not excluded. No free air. No free fluid. IMPRESSION: 1. Bilateral perinephric and retroperitoneal stranding / edema. 2. Ill-defined low density within the anterior superior pole of the right kidney. This likely represents pyelonephritis. Other etiologies not excluded. Ultrasound could also be obtained for further characterization. 3. Minimal perivesicular stranding. Cystitis not excluded. 4. No urinary or bowel obstruction and normal appendix. EXAM: CT CHEST WITH CONTRAST HISTORY: Dyspnea, nausea and vomiting COMPARISON: None TECHNIQUE: Multi-slice transaxial helical images are acquired through the thorax with coronal and sagittal reconstructed images. All CT scans are performed using dose optimization techniques as appropriate to the performed exam and includes at least one of the following: Automated exposure control, adjustment of the mA and/or kV according to size, and the use of iterative reconstruction technique. CONTRAST: Intravenous FINDINGS: The heart size is normal. There is suggestion of minimal anterior mediastinal thymic soft tissue. No suspicious lymphadenopathy. Minimal dependent atelectasis. No acute infiltrates. No nodules or masses. There is a hypo enhancement at the superior pole of the right kidney. The solid organs otherwise normal in their visualized portions of the upper abdomen. No suspicious bone lesions or acute osseous abnormalities. IMPRESSION: 1. Minimal dependent atelectasis. 2. No acute infiltrates. 3. Probable pyelonephritis at the superior pole of the right kidney. Clinically correlate. Active Medications Active Medications: Medications Generic Name Dose Route Start Last Admin Trade Name Freq PRN Reason Stop Dose Admin Acetaminophen 650 mg 09/05/22 22:51 Acetaminophen 325 Mg Tablet PO Q4H PRN Mild Pain Amitriptyline HCl 10 mg 09/06/22 11:30 09/08/22 08:39 Amitriptyline Hcl 10 Mg Tablet PO 10 mg DAILY EB Administration Bupropion HCl 300 mg 09/06/22 11:30 09/08/22 08:40 Bupropion Hcl 150 Mg Tab.Er.24h PO 300 mg QAM EB Administration Enoxaparin Sodium 40 mg 09/06/22 11:30 09/08/22 08:40 Enoxaparin Sodium 40 Mg/0.4 Ml Syr SUBCUT 40 mg DAILY EB Administration Ferrous Sulfate 324 mg 09/06/22 11:30 09/08/22 08:38 Ferrous Sulfate 324 Mg Tablet.Dr PO 324 mg Q48HR EB Administration Fluoxetine HCl 20 mg 09/06/22 11:30 09/08/22 08:38 Fluoxetine Hcl 20 Mg Capsule PO 20 mg DAILY EB Administration Gabapentin 100 mg 09/06/22 15:00 09/08/22 08:39 Gabapentin 100 Mg Capsule PO 100 mg TID EB Administration Gabapentin 300 mg 09/06/22 15:00 09/08/22 08:38 Gabapentin 300 Mg Capsule PO 300 mg TID EB Administration HCTZ/Losartan Potassium 2 tab 09/06/22 11:30 09/08/22 08:39 Losartan/Hydrochlorothiazide 50/12.5 Mg Tab PO 2 tab DAILY EB Administration CEFTRIAXONE/D5W 1 GM PREMIX 1 gm in 50 mls @ 75 mls/hr 09/06/22 21:00 09/07/22 20:29 Rocephin 1 Gm/50 Ml D5w IV 09/09/22 22:00 75 mls/hr BEDTIME EB Administration Lactated Ringer's 1,000 mls @ 125 mls/hr 09/06/22 09:00 09/08/22 03:17 Lactated Ringers IV 125 mls/hr .Q8H EB Administration Potassium Chloride 20 meq in 100 mls @ 50 mls/hr 09/08/22 10:51 Potassium Chloride 20 Meq/100 Ml Premix IV 09/08/22 12:50 ONCE ONE Insulin Glargine 15 unit 09/06/22 21:00 09/07/22 20:30 Insulin Glargine,Hum.Rec.Anlog 100 Units/Ml SUBCUT 15 unit BEDTIME EB Administration Insulin Human Regular 0 unit 09/05/22 22:51 09/08/22 06:18 Insulin Regular, Human 100 Unit/Ml (3ml) Vial SUBCUT 4 unit PRN PRN Administration Hyperglycemia Protocol Metoclopramide HCl 10 mg 09/08/22 10:25 Metoclopramide Hcl 10 Mg/2 Ml IVP Q6H PRN Nausea / Vomiting Ondansetron HCl 4 mg 09/05/22 23:00 09/08/22 04:08 Ondansetron Hcl/Pf 4 Mg/2 Ml Sdv IVP 4 mg Q6H PRN Administration Nausea / Vomiting Pantoprazole Sodium 40 mg 09/06/22 11:30 09/08/22 09:02 Pantoprazole Sodium 40 Mg Vial IVP 40 mg DAILY EB Administration Sodium Chloride 1 syr 09/05/22 20:38 09/05/22 21:11 0.9% Sodium Chloride 10 Ml Disp.Syrin IVF 1 syr PRN PRN Administration To flush IV Plan Plan: 1. Acute pyelonephritis, bilateral -CT ordered to r/o abscess, showing stan pyelo now. Ill defined low density area on right side, will get US to further evaluate. Continue with rocephin and fluids. Blood culture came back positive for e coli. Urine culture showing no growth. Unfortunately urine culture was not reflexed and not obtained until after abx initiated. Prelim is negative for growth, however likely not accurate. E coli in blood would be consistent with expected organism in urine. Zofran prn. Protonix ordered. 2. Bacteremia due to E coli in setting of acute pyelonephritis - One bottle positive for e coli. Cont abx. Repeat blood cultures negative x24 hrs. 3. Sepsis in setting of acute pyelonephritis - Resolving. Plan as above. 4. Hyperglycemia - Concern initially due to low ph on VBG for dka. Repeat VBG on 09/06 significantly better. Insulin drip and d5 stopped. Continue home meds and sliding scale. Accuchecks achs. 4. Elevated LFTs - Improving. hepatitis panel pending. US showing fatty liver and CBD of 9 mm post micaela. Likely elevated in setting of sepsis. 5. Dyspnea - CXR ordered showing atelectasis vs early pna. Pt does not have a cough or any uri symptoms except sob which is now resolved. 6. DMT2 - Continue lantus. SS as above. 7. Hypertension - Continue home meds 8. GERD - Continue protonix 9. Depression - Continue home meds DVT Prophylaxis: Lovenox Review Statement Review Statement: I have personally discussed and reviewed the patient's visit/currently labs/imaging/decision making with Dr. Marcelino, my supervising attending. Greater that 50 minutes spent with patient, 50% of the time spent with this patient was devoted to counseling and coordination of care.
[2022-09-08] MEDS ORDERED: MYLANTA SUSP PO PRN (11:18)
--- NOTE | 2022-09-08 14:06 | US ---
EXAM: RENAL ULTRASOUND HISTORY: Right kidney ill-defined density COMPARISON: CT 09/08/2022 TECHNIQUE: Renal ultrasound was performed FINDINGS: Portions of the kidneys are obscured secondary to shadowing artifact. Right kidney measur es 6.0 x 3.5 x 11.2 cm. Left kidney measures 7.0 x 3.9 x 13.4 cm. No hydronephrosis or renal calcul us identified large enough to cause acoustic shadowing. Portions of the kidneys are obscured and the finding described on CT is not visualized on ultrasound. Possible bladder wall thickening versus un derdistension. IMPRESSION: 1. Portions of the kidneys are obscured and the finding described on CT in the right kidney is not v isualized on ultrasound the 2. No hydronephrosis. 3. Areas of shadowing artifact limit evaluation with portions of the kidneys obscured. 4. Possible bladder wall thickening versus underdistension, may relate to changes of chronic outlet obstruction or cystitis versus underdistension.
[2022-09-08 14:21] VITALS: RESP 16
[2022-09-08] MEDS: ROCEPHIN 1 GM/50 ML D5W 1 GM/50 ML BAG IV SCH (21:06)
[2022-09-08] MEDS: LANTUS SUBCUT SCH (21:24)
[2022-09-09 05:29] LABS: BASOPHILS % (AUTO) 0.4 % (0.0-3.0); EOSINOPHILS # (AUTO) 0.1 K/ul (0.0-0.7); EOSINOPHILS % (AUTO) 1.1 % (0.0-7.0); HEMATOCRIT 32.8 % (37.0-47.0); HEMOGLOBIN 10.5 g/dl (12.0-16.0); IMMATURE GRANULOCYTE % (AUTO) 0.2 % (0.0-5.0); LYMPHOCYTES # (AUTO) 2.6 K/uL (0.60-3.4); LYMPHOCYTES % (AUTO) 31.6 (10.0-50.0); MEAN CORPUSCULAR HEMOGLOBIN 27.7 pg (27.0-31.0); MEAN CORPUSCULAR VOLUME 86.5 fl (81.0-99.0); MONOCYTES # (AUTO) 0.5 K/uL (0.4-2.0); NEUTROPHILS % (AUTO) 60.7 % (42.2-75.2); PLATELET COUNT 485 10^3/uL (140-440); RDW COEFFICIENT OF VARIATION 13.8 % (11.6-14.8); RED BLOOD COUNT 3.79 10^6/ul (4.20-5.40); WHITE BLOOD COUNT 8.22 K/ul (4.6-10.2)
[2022-09-09 05:41] LABS: ALANINE AMINOTRANSFERASE 27.8 U/L (0-35); ALBUMIN 3.11 g/dL (3.5-5.0); ASPARTATE AMINO TRANSFERASE 19.7 U/L (14-36); BILIRUBIN,TOTAL 0.51 mg/dL (0.2-1.3); BLOOD UREA NITROGEN 7.7 mg/dL (7-17); CALCIUM 8.28 mg/dL (8.4-10.2); CARBON DIOXIDE 37.3 mmol/L (22-30.0); CHLORIDE 94.1 mmol/L (98-107); CREATININE 0.51 mg/dL (0.60-1.30); GLUCOSE 257.8 mg/dL (74-106); POTASSIUM 3.19 mmol/L (3.5-5.1); SODIUM 135.6 mmol/L (134.5-145); TOTAL PROTEIN 7.46 g/dL (6.3-8.2)
[2022-09-09] MEDS: HUMULIN R SUBCUT PRN ×3 (06:31→17:00)
[2022-09-09] MEDS: LACTATED RINGERS 1,000 ML IV SCH (07:50)
[2022-09-09] MEDS ORDERED: POTASSIUM CHLORIDE 20 MEQ/100 ML PREMIX 20 MEQ/100 ML BAG IV ONE ×3 (08:18→12:30)
[2022-09-09] MEDS: LOVENOX SUBCUT SCH (09:09)
[2022-09-09] MEDS: PROTONIX IV IVP SCH (09:09)
[2022-09-09] MEDS: HYZAAR 50-12.5 MG TAB PO SCH (09:09)
[2022-09-09] MEDS: WELLBUTRIN XL PO SCH (09:09)
[2022-09-09] MEDS: ELAVIL PO SCH (09:10)
[2022-09-09] MEDS: PROZAC PO SCH (09:10)
[2022-09-09] MEDS: NEURONTIN PO SCH ×4 (09:10→16:19)
--- NOTE | 2022-09-09 12:21 | DCSUM ---
Admission Date Admission Date: 09/05/22 Discharge Date Discharge Date: 09/09/22 Admission Diagnosis Admission Diagnosis: 1. Acute pyelonephritis 2. Sepsis in setting of acute pyelonephritis 3. Hyperglycemia 4. Elevated LFTs Discharge Diagnosis Discharge Diagnosis: 1. Acute pyelonephritis, bilateral 2. Bacteremia due to E coli in setting of acute pyelonephritis, resolved 3. Sepsis in setting of acute pyelonephritis - Resolved 4. Hyperglycemia 5. Elevated LFTs - resolving 6. DMT2 7. Hypertension 8. GERD 9. Depression Hospital Provider Hospital Provider: SAMEERA APARICIO PA-C, [facility] [place] Primary Care Physician Primary Care Physician: FRANCISCO STEPHENS APRN Summary of History and Physical Summary of History and Physical: Patient is a 37-year-old female with past medical history of diabetes, gastroparesis, hyperlipidemia, asthma, vitamin D deficiency, and anemia who presented to the ER with chief complaint of abdominal pain and nausea vomiting for the past 4 to 5 days. She states she is just overall not felt well. She's had low back pain. She has also had some shortness of breath. She denies any other upper respiratory symptoms such as congestion, ear pain, drainage. She denies chest pain. She denies any difficulty urinating. No burning when she urinates. In the ER she was found to have a UTI and given antibiotics. She was also found to have venous pH of 6.96. Bicarb was normal, glucose was elevated. She was started on insulin drip and fluids. CT abdomen pelvis was negative for any acute findings. She was admitted to [facility]. On my evaluation the patient is feeling better this morning. She is still complaining of nausea. She has been dry heaving. She still has some shortness of breath, states she does not normally feel short of breath at baseline. Hospital Course Subjective: Patient's repeat ABG was significantly improved. Bicarb had been normal. Not thought to be in DKA. Therefore insulin drip and D5 was stopped. Glucose has been stable throughout stay. Patient was treated with fluids and Rocephin for urinary tract infection. She required IV antiemetics multiple times due to her nausea and vomiting. Her initial blood cultures were positive for E. coli. Her urine culture was negative for growth however it was not cultured until after antibiotics were given for over 24 hours due to it not reflexing initially. Therefore it was felt to not be accurate. The E. coli in her blood would be consistent with an expected organism in her urine. Repeat blood cultures are negative for growth x48 hours. Liver enzymes elevated as well. These have trended down. Ultrasound showing fatty liver. Thought to be acutely elevated due to sepsis. Patient continued to have nausea and vomiting despite lab improvement and antibiotics. Repeat CT scan showed bilateral pyelonephritis but no abscess formation. There was a ill-defined area on her right kidney. Ultrasound is not able to see this area. Not thought to be an abscess. Potassium replaced. On 09/09 she was tolerating a p.o. diet and ready for discharge. She will be discharged on Bactrim based on culture results. She will push fluids. Reglan prn. Follow-up with PCP in 3 to 5 days. Appearance: Pleasant, No Apparent Distress, Alert, Well-appearing and Well- nourished HEENT: MMM CVS: No Murmur Abdomen: Soft, Non-Tender and No Distention Respiratory: No Dyspnea Extremities: No Edema Additional Findings: Eating breakfast during evaluation. Vital Signs: Most Recent Vital Signs Temperature 97.4 F L 09/09/22 05:15 Temperature Source Temporal Artery Scan 09/09/22 05:15 Temperature Source Infrared 09/05/22 20:41 Pulse Rate 78 09/09/22 05:15 Respiratory Rate 16 09/09/22 07:24 Blood Pressure 150/96 H 09/09/22 05:15 Blood Pressure Mean 114 09/09/22 05:15 Blood Pressure Left Arm 125/78 09/05/22 23:34 Blood Pressure Location Right Arm 09/09/22 05:15 Blood Pressure Position Supine 09/09/22 05:15 O2 Sat by Pulse Oximetry 90 L 09/09/22 05:15 Oxygen Delivery Method Room Air 09/09/22 07:24 Height 5 ft 2 in 09/06/22 07:18 Weight 290 lb 09/06/22 07:18 Telemetry Type Remote Telemetry 09/09/22 01:00 Telemetry Monitoring Continues 09/09/22 01:00 Telemetry Heart Rate 81 09/09/22 07:00 EKG FL Interval 0.12 09/09/22 07:00 EKG QRS Interval 0.08 09/09/22 07:00 EKG QT Interval 0.33 09/08/22 01:00 Telemetry Strip Reading SR 09/09/22 07:00 Imaging: EXAM: CT SCAN ABDOMEN PELVIS WITH CONTRAST HISTORY: Left upper quadrant pain COMPARISON: CT scan abdomen pelvis 07/27 21 FINDINGS: Postcontrast helical imaging was obtained through the abdomen pelvis utilizing 2.5-mm collimation. Sagittal and coronal reconstructions were imaged and reviewed. Visualized lung bases are clear. There has been prior cholecystectomy. The liver is enlarged with diffuse fatty infiltration. The pancreas spleen and adrenal glands have normal enhanced CT appearance. The kidneys excrete contrast in a normal fashion bilaterally.. The abdominal aorta is normal and course and caliber. The intestines demonstrate normal caliber without surrounding inflammatory changes. There is a fat-containing umbilical hernia. The bladder is decompressed limiting evaluation. Normal-appearing uterus. Bone windows reveals no lytic or blastic lesions. IMPRESSION: No acute intra-abdominal findings Hepatomegaly with fatty infiltration EXAM: ULTRASOUND ABDOMINAL COMPLETE HISTORY: Elevated liver function tests. Abdominal pain. TECHNIQUE: Sonography of the abdomen was performed. Images were obtained and stored in a permanent archive. Color Doppler images of the main portal vein were also obtained. COMPARISON: CT abdomen pelvis 08/05/2022. FINDINGS: Pancreas: Normal sonographic appearance of the head and body. Tail is partially obscured. Liver: Diffusely hyper echogenic liver parenchyma. No lesions. - Normal antegrade flow within the main portal vein. Biliary: No duct dilation. Common bile duct measures 9 mm. Post cholecystectomy. Spleen: Partially obscured. No visible lesion in the imaged portion. Right Kidney: No hydronephrosis. No lesions. No calculus. Left Kidney: No hydronephrosis. No lesions. No calculus. IVC: Patent on color Doppler. No abnormality on grimm scale image. Aorta: No aneurysmal dilatation in visualized portions. Other: No ascites. IMPRESSION: Hyper echogenic liver parenchyma consistent with steatosis. Dilated common bile duct measuring 9 mm. This could be physiologic post cholecystectomy, though biliary obstruction is also possible. EXAM: CT CHEST WITH CONTRAST HISTORY: Dyspnea, nausea and vomiting COMPARISON: None TECHNIQUE: Multi-slice transaxial helical images are acquired through the thorax with coronal and sagittal reconstructed images. All CT scans are performed using dose optimization techniques as appropriate to the performed exam and includes at least one of the following: Automated exposure control, adjustment of the mA and/or kV according to size, and the use of iterative reconstruction technique. CONTRAST: Intravenous FINDINGS: The heart size is normal. There is suggestion of minimal anterior mediastinal thymic soft tissue. No suspicious lymphadenopathy. Minimal dependent atelectasis. No acute infiltrates. No nodules or masses. There is a hypo enhancement at the superior pole of the right kidney. The solid organs otherwise normal in their visualized portions of the upper abdomen. No suspicious bone lesions or acute osseous abnormalities. IMPRESSION: 1. Minimal dependent atelectasis. 2. No acute infiltrates. 3. Probable pyelonephritis at the superior pole of the right kidney. Clinically correlate. EXAM: RENAL ULTRASOUND HISTORY: Right kidney ill-defined density COMPARISON: CT 09/08/2022 TECHNIQUE: Renal ultrasound was performed FINDINGS: Portions of the kidneys are obscured secondary to shadowing artifact. Right kidney measures 6.0 x 3.5 x 11.2 cm. Left kidney measures 7.0 x 3.9 x 13.4 cm. No hydronephrosis or renal calculus identified large enough to cause acoustic shadowing. Portions of the kidneys are obscured and the finding described on CT is not visualized on ultrasound. Possible bladder wall thickening versus underdistension. IMPRESSION: 1. Portions of the kidneys are obscured and the finding described on CT in the right kidney is not visualized on ultrasound the 2. No hydronephrosis. 3. Areas of shadowing artifact limit evaluation with portions of the kidneys obscured. 4. Possible bladder wall thickening versus underdistension, may relate to changes of chronic outlet obstruction or cystitis versus underdistension. Lab Results Last 24 Hours: 09/09/22 05:16 WBC 8.22 RBC 3.79 L Hgb 10.5 L Hct 32.8 L MCV 86.5 MCH 27.7 MCHC 32.0 RDW Coeff of Rod 13.8 Plt Count 485 H Immature Gran % (Auto) 0.2 Neut % (Auto) 60.7 Lymph % (Auto) 31.6 [place] % (Auto) 6.0 Eos % (Auto) 1.1 Baso % (Auto) 0.4 Neut # (Auto) 5.0 Lymph # (Auto) 2.6 [place] # (Auto) 0.5 Eos # (Auto) 0.1 Baso # (Auto) 0.0 Immature Gran # (Auto) 0.0 Sodium 135.6 Potassium 3.19 L Chloride 94.1 L Carbon Dioxide 37.3 H Anion Gap 7.39 BUN 7.7 Creatinine 0.51 L Estimated GFR (MDRD) 163.00 BUN/Creatinine Ratio 15.09 Glucose 257.8 H Calcium 8.28 L Total Bilirubin 0.51 AST 19.7 ALT 27.8 Alkaline Phosphatase 149.0 H D Total Protein 7.46 Albumin 3.11 L Globulin 4.35 Albumin/Globulin Ratio 0.71 Discharge Instructions Discharge Planning: Discharge Planning > [address] Bryan Marcelino. Discharge Medications: Medications at Discharge (Home Meds & RX) pen needle, diabetic 32 gauge x 1/4" (BD Ultra-Fine Micro Pen Needle) #120 tab- caps 02/18/22 ascorbic acid (vitamin C) 500 mg tablet 500 mg PO QDAY 03/01/22 blood sugar diagnostic (Blood Glucose Test strips) #100 strips 03/01/22 blood-glucose meter #1 ea 03/01/22 cholecalciferol (vitamin D3) 10 mcg (400 unit) tablet 10 mcg PO QDAY 03/01/22 ferrous sulfate 325 mg (65 mg iron) tablet 325 mg PO Q OTHER DAY 03/01/22 sumatriptan succinate 50 mg tablet See Rx Instructions PO .COMPLEX #20 tabs 03/01/22 vitamin e 100 units PO DAILY 03/01/22 lancets (Accu-Chek Softclix Lancets) #200 ea 03/05/22 blood-glucose meter,continuous (Dexcom G6 Fingerer) #1 ea 05/31/22 blood-glucose sensor (Dexcom G6 Sensor device) #3 ea 05/31/22 blood-glucose transmitter (Dexcom G6 Transmitter device) #1 ea 05/31/22 ondansetron HCl 8 mg tablet 8 mg PO Q8H PRN nausea and vomiting #90 tabs 06/30/22 amitriptyline 10 mg tablet 10 mg PO QDAY 90 days #90 tabs 08/13/22 gabapentin 400 mg capsule 400 mg PO TID #90 caps 08/13/22 dulaglutide 3 mg/0.5 mL subcutaneous pen injector ([facility]) See Rx Instructions .Route .COMPLEX #2 inserts 08/27/22 acetaminophen 325 mg capsule (Tylenol) 650 mg PO Q6H PRN PAIN/FEVER 08/31/22 bupropion HCl 300 mg 24 hr tablet, extended release (Wellbutrin XL) 300 mg PO QAM #30 tabs 08/31/22 fluoxetine 20 mg capsule (Prozac) 20 mg PO QDAY #30 caps 08/31/22 ibuprofen 200 mg tablet 400 mg PO Q6H PRN PAIN/FEVER 08/31/22 Lantus Solostar U-100 Insulin 100 unit/mL (3 mL) subcutaneous pen (insulin glargine) 15 unit (0.15 mL) subcut QPM 30 days #4.5 mL 09/01/22 Novolog FlexPen U-100 Insulin 100 unit/mL (3 mL) subcutaneous (insulin aspart U- 100) 12 unit (0.12 mL) subcut TID 30 days #10.8 mL 09/01/22 losartan 100 mg-hydrochlorothiazide 25 mg tablet 1 tab PO DAILY 30 days #30 tabs 09/01/22 mupirocin 2 % topical ointment 1 applic topical TID 7 days #15 grams 09/01/22 pantoprazole 40 mg tablet,delayed release 40 mg PO QDAY 30 days #30 tabs 09/01/22 diclofenac sodium 1 % topical gel 2 g topical BID PRN JOINT PAIN 09/05/22 Discharge Plan Discharge Discharge Orders: Discharge Patient (ONCE); Ordered 09/09/22 Ordered By: SAMEERA APARICIO Activity Restrictions/Additional Instructions: DISCHARGE TO HOME DX: ACUTE PYELONEPHRITIS, BACTEREMIA DIET: PROGRESS TOLERATED ACTIVITY: TOLERATED PHARMACY: [facility] YOU HAVE A FOLLOW UP APPOINTMENT WITH THOMAS HERNANDEZ NP, ON September AT 10:15AM. SHOULD YOU HAVE ANY QUESTIONS OR NEED TO RESCHEDULE YOU CAN CONTACT THEIR OFFICE AT [phone]. Patient Disposition: HOME SELF-CARE Prescriptions: New sulfamethoxazole-trimethoprim [Bactrim DS] 800-160 mg tablet 1 tab PO BID 7 Days Qty: 14 0RF metoclopramide HCl [Reglan] 5 mg tablet 5 mg PO Q4-6H PRN (Reason: nausea and vomiting) Qty: 15 0RF Continued (DME) pen needle, diabetic [BD Ultra-Fine Micro Pen Needle] 32 gauge x 1/4" needle 1 ea QID 30 Days Qty: 120 1RF Rx Instructions: Use as directed (DME) Blood Glucose Test Strip 1 [facility] qac and fasting 30 Days Qty: 100 12RF Rx Instructions: Please provide patient with Medicare covered strips/machine. one touch ordered. (DME) blood-glucose meter Kit 1 [facility] hs 30 Days Qty: 1 0RF Rx Instructions: As directed ([facility]) lancets [Accu-Chek Softclix Lancets] Misc See Rx Instructions .ROUTE Qty: 200 0RF Rx Instructions: AC and HS; please provide patient whichever lancets are covered amitriptyline 10 mg tablet 10 mg PO QDAY 90 Days Qty: 90 0RF gabapentin 400 mg capsule 400 mg PO TID Qty: 90 0RF Trulicity 3 mg/0.5 mL pen injector See Rx Instructions .ROUTE .COMPLEX Qty: 2 1RF Dose Instruction: INJECT THREE MG (0.5 ML) SUBCUTANEOUSLY EVERY WEEK FOR 28 DAYS Rx Instructions: INJECT THREE MG (0.5 ML) SUBCUTANEOUSLY EVERY WEEK FOR 28 DAYS diclofenac sodium 1 % gel 2 g TOPICAL BID PRN (Reason: JOINT PAIN) Rx Instructions: APPLY THIN LAYER TO AFFECTED AREA ferrous sulfate 325 mg (65 mg iron) tablet 325 mg PO Q OTHER DAY cholecalciferol (vitamin D3) 10 mcg (400 unit) tablet 10 mcg PO QDAY vitamin e 100 units PO DAILY Patient Comments: 100 IU daily OTC Rx Instructions: orally daily; ascorbic acid (vitamin C) 500 mg tablet 500 mg PO QDAY sumatriptan succinate 50 mg tablet See Rx Instructions PO .COMPLEX Qty: 20 0RF Rx Instructions: take 1 tab at onset of headache; if no relief may repeat 1 tab after at least 2 hrs; max = 4 tabs/24 hr PO (DME) Dexcom G6 Fingerer Misc See Rx Instructions .ROUTE Qty: 1 12RF Rx Instructions: As directed ([facility]) Dexcom G6 Sensor Device See Rx Instructions .ROUTE Qty: 3 12RF Rx Instructions: As directed ([facility]) Dexcom G6 Transmitter Device See Rx Instructions .ROUTE Qty: 1 12RF Rx Instructions: As directed ibuprofen 200 mg tablet 400 mg PO Q6H PRN (Reason: PAIN/FEVER) acetaminophen [Tylenol] 325 mg capsule 650 mg PO Q6H PRN (Reason: PAIN/FEVER) fluoxetine [Prozac] 20 mg capsule 20 mg PO QDAY Qty: 30 1RF bupropion HCl [Wellbutrin XL] 300 mg tablet extended release 24 hr 300 mg PO QAM Qty: 30 1RF insulin glargine [Lantus Solostar U-100 Insulin] 100 unit/mL (3 mL) insulin pen 15 unit subcut QPM 30 Days Qty: 4.5 12RF insulin aspart U-100 [Novolog FlexPen U-100 Insulin] 100 unit/mL (3 mL) insul in pen 12 unit subcut TID 30 Days Qty: 10.8 2RF Rx Instructions: changed per insurance request. states this is covered on formulary mupirocin 2 % ointment 1 applic topical TID 7 Days Qty: 15 0RF losartan-hydrochlorothiazide 100-25 mg tablet 1 tab PO DAILY 30 Days Qty: 30 3RF pantoprazole 40 mg tablet,delayed release (DR/EC) 40 mg PO QDAY 30 Days Qty: 30 3RF ondansetron HCl 8 mg tablet 8 mg PO Q8H PRN (Reason: nausea and vomiting) Qty: 90 0RF Did you review [place] FIELD PERSON for ALL controlled substances?: Not Applicable Discussed opioids are addictive and Narcan is available by prescription or from pharmacy.: No Condition: Stable
[2022-09-09 14:27] VITALS: BP 150/100; PULSE 89; TEMP 96.2
[2022-09-09] MEDS: ZOFRAN 4 MG/2 ML IVP PRN (14:37)
== END 2022-09-09 18:00 | disposition home or self-care (01) | DRG 689 ==
LOC: ED 20:35 → MEDSURG B 23:08
PROVIDERS: ADMIT Hospitalist; ATTEND Physician Assistant
DX: R19.7 Diarrhea, unspecified; D72.828 Other elevated white blood cell count; D64.9 Anemia, unspecified; R10.9 Unspecified abdominal pain; E11.65 Type 2 diabetes mellitus with hyperglycemia; R74.01 Elevation of levels of liver transaminase levels; R06.00 Dyspnea, unspecified; N10 Acute pyelonephritis; A41.51 Sepsis due to Escherichia coli [E. coli]; R63.0 Anorexia; N28.89 Other specified disorders of kidney and ureter; F32.A Depression, unspecified; K21.9 Gastro-esophageal reflux disease without esophagitis; N39.0 Urinary tract infection, site not specified